=== PATIENT | male | born 1985 | race Caucasian/White ===

== ENCOUNTER 2020-08-07 16:48 | Inpatient (IN) ==
[2020-08-07] MEDS ORDERED: HYDROmorphone INJ 0.5 MG/0.5 ML SYR IV STA ×2 (17:24→21:02)
[2020-08-07] MEDS ORDERED: ONDANSETRON INJ 2 MG/ML 2 ML VIAL IV STA (17:24)
--- NOTE | 2020-08-07 17:28 | Emergency Department Note ---
History of Present Illness General Chief complaint: Abdominal Pain Stated complaint: ABD PAIN Time Seen by Provider: 08/07/20 17:13 Source: patient History of Present Illness Provider complaint: Epigastric abdominal pain Onset (ago): day(s) 2 Location: abdomen Radiation: back Severity: severe Pain Consistency: + constant Maximum Pain Intensity: 10 Quality: + sharp Exacerbated By: + eating Associated symptoms: + shortness of breath (From pain); no chest pain, no cough, no fever/chills and no nausea/vomiting This is a 35-year-old male who presents with severe abdominal pain for the past 2 days. He describes it as sharp pain in the epigastric region. It is worse when he eats. He did have biscuits and gravy at noon today which worsened his pain. He rates it a 10 out of 10 in severity. It is associated with multiple episodes of vomiting. He has not had a bowel movement for 2 days but states that he has been passing gas. He has had no urinary complaints other than dark urine. He denies any fever, cough or cold symptoms, known exposure to COVID-19, or chest pain. He does have some shortness of breath from the severe pain he is in. He denies any history of medical problems or surgery on his abdomen. Home Medications Medication Instructions Recorded Confirmed Type No Known Home Medications 08/07/20 08/07/20 History Allergies Allergy/AdvReac Type Severity Reaction Status Date / Time Opioids - Morphine Analogues AdvReac Unknown SEE COMMENT Verified 08/07/20 18:34 Past Med/Surg History Medical History No pertinent past medical history Social History Smoking Status: Current every day smoker Feels Safe at Home: Yes Review of Systems See HPI for pertinent positives & negatives. and A total of 10 systems reviewed and were otherwise negative Physical Exam Vital Signs Vital Signs - 24 hr 08/07/20 17:02 08/07/20 18:49 08/07/20 19:29 Temperature 36.3 C L Temperature Source Oral Pulse Rate 73 Pulse Rate [Finger] 80 88 Pulse Rhythm Regular Pulse Rhythm [Finger] Regular Pulse Strength Normal Pulse Strength [Finger] Normal Respiratory Rate 20 20 20 Respiratory Effort / Characteristics Non-Labored Non-Labored Spontaneous Respiratory Depth Normal Normal Respiratory Pattern Regular Blood Pressure 127/91 Blood Pressure [Right Arm] 133/85 153/79 H Blood Pressure Mean 103 Blood Pressure Mean [Right Arm] 101 103 Blood Pressure Position Sitting Blood Pressure Position [Right Arm] Pulse Oximetry 97 98 98 Oxygen Delivery Method Room Air Room Air Sepsis Recent Fever Within 48 Hours No Sepsis New/Unexplained Change in Mental Status No Sepsis Action Taken by Nursing No Action Required 08/07/20 21:19 Temperature Temperature Source Pulse Rate Pulse Rate [Finger] 55 L Pulse Rhythm Pulse Rhythm [Finger] Regular Pulse Strength Pulse Strength [Finger] Normal Respiratory Rate 20 Respiratory Effort / Characteristics Non-Labored Spontaneous Respiratory Depth Normal Respiratory Pattern Blood Pressure Blood Pressure [Right Arm] 132/74 Blood Pressure Mean Blood Pressure Mean [Right Arm] 93 Blood Pressure Position Blood Pressure Position [Right Arm] Lying Pulse Oximetry 96 Oxygen Delivery Method Room Air Sepsis Recent Fever Within 48 Hours Sepsis New/Unexplained Change in Mental Status Sepsis Action Taken by Nursing Constitutional: Vital signs reviewed. In severe pain. Eyes: Pupils are equal round reactive to light. Conjunctiva are noninjected. ENT: Pharynx is clear without erythema or exudate. Mucous membranes are moist. Neck supple without meningeal signs. Respiratory: Clear to auscultation bilaterally. Breath sounds are equal bilaterally. Cardiovascular: Regular rate and rhythm. No rubs or gallops. GI: Voluntary guarding with severe epigastric tenderness. Bowel sounds are present. Musculoskeletal: No peripheral edema. No lower extremity tenderness. Integumentary: No cyanosis. or jaundice. Neurological: The patient is awake and alert. No focal deficits. Psychiatric: Very anxious. Course Administered Medications Discontinued Medications Hydromorphone HCl (Hydromorphone Inj 0.5 Mg/0.5 Ml Syr) 0.5 mg IV NOW STA Stop: 08/07/20 17:25 Last Admin: 08/07/20 17:53 Dose: 0.5 mg Documented by: [id number] Hydromorphone HCl (Hydromorphone Inj 0.5 Mg/0.5 Ml Syr) 0.5 mg IV NOW STA Stop: 08/07/20 21:03 Last Admin: 08/07/20 21:21 Dose: 0.5 mg Documented by: [id number] Sodium Chloride (Nss 1000ml) 1,000 mls @ 999 mls/hr IV .Q1H1M JUSTYNA Stop: 08/07/20 18:30 Last Infusion: 08/07/20 18:55 Dose: 0 mls/hr Documented by: [id number] Admin: 08/07/20 17:53 Dose: 999 mls/hr Documented by: [id number] Ondansetron HCl (Ondansetron Inj 2 Mg/Ml 2 Ml Vial) 4 mg IV NOW STA Stop: 08/07/20 17:25 Last Admin: 08/07/20 17:53 Dose: 4 mg Documented by: [id number] Medical Decision Making Differential Diagnosis Peptic ulcer disease, bowel perforation, pancreatitis, cholecystitis, bowel obstruction Medical Records Attestation: I reviewed the patient's medical records. I did perform a limited focused review of portions of the patient's old chart on the electronic medical record. The patient has had no prior visits to this hospital. Home Medications Current Medication List: was personally reviewed by me Laboratory Data Attestation: I reviewed the patient's lab results. Result diagrams: 08/07/20 17:47 08/07/20 17:47 Lab Results 08/07/20 08/07/20 08/07/20 Range/Units 17:47 17:47 17:47 WBC 7.27 (4.8-10.8) K/uL RBC 4.39 L (4.7-6.1) M/uL Hgb 13.9 L (14.0-18.0) g/dL Hct 40.2 L (42-52) % MCV 91.6 (80-100) fL MCH 31.7 (25-34) pg MCHC 34.6 (32-36) g/dL RDW Std Deviation 43.0 (36.4-46.3) fL RDW Coeff of Jimmy 12.8 (11.5-14.5) % Plt Count 337 (130-400) K/uL MPV 9.7 (7.4-10.4) fL Immature Gran % (Auto) 0.1 % Neut % (Auto) 68.2 % Lymph % (Auto) 17.5 % [facility] % (Auto) 8.7 % Eos % (Auto) 5.1 % Baso % (Auto) 0.4 % Neut # (Auto) 4.96 (1.4-6.5) K/uL Lymph # (Auto) 1.27 (1.2-3.4) K/uL [facility] # (Auto) 0.63 H (0.11-0.59) K/uL Eos # (Auto) 0.37 (0-0.5) K/uL Baso # (Auto) 0.03 (0-0.2) K/uL Immature Gran # (Auto) 0.01 (0.00-0.02) K/uL Sodium 141 (136-145) mmol/L Potassium 3.5 (3.5-5.1) mmol/L Chloride 105 (98-107) mmol/L Carbon Dioxide 31 (21-32) mmol/L Anion Gap 5.0 (3-11) BUN 6 L (7-18) mg/dl Creatinine 0.94 (0.6-1.4) mg/dl Est Cr Clr Drug Dosing 145.8 ml/min Est GFR ( Amer) 123.0 Est GFR (Non-Af Amer) 106.1 BUN/Creatinine Ratio 5.9 L (10-20) Glucose 89 (70-99) mg/dl Calcium 9.3 (8.5-10.1) mg/dl Total Bilirubin 3.7 H (0.2-1) mg/dl AST 311 H (15-37) U/L ALT 780 H (12-78) U/L Alkaline Phosphatase 296 H (45-117) U/L Total Protein 7.7 (6.4-8.2) gm/dl Albumin 3.7 (3.4-5.0) gm/dl Globulin 4.0 (2.5-4.0) gm/dl Albumin/Globulin Ratio 0.9 (0.9-2) Lipase 111 (73-393) U/L Urine Color Brown Urine Appearance Clear (Clear) Urine pH (4.5-7.5) Ur Specific [place] 1.026 (1.000-1.060) Urine Protein (Negative) Urine Glucose (UA) (Negative) Urine Ketones (Negative) Urine Blood (Negative) Urine Nitrite (Negative) Urine Bilirubin (Negative) Urine Urobilinogen (Negative) Ur Leukocyte Esterase (Negative) Urine RBC 0-4 (0-4) /hpf Urine WBC 5-10 H (0-5) /hpf Ur Epithelial Cells 0-5 (0-5) /lpf Urine Bacteria Negative (Negative) Hyaline Casts 0-5 (0-5) /lpf Urine Mucus Present A (None Prsent) COVID-19 Eval Order SARS-CoV-2, RNA, NAAT (NEGATIVE) 08/07/20 08/07/20 Range/Units 21:18 21:18 WBC (4.8-10.8) K/uL RBC (4.7-6.1) M/uL Hgb (14.0-18.0) g/dL Hct (42-52) % MCV (80-100) fL MCH (25-34) pg MCHC (32-36) g/dL RDW Std Deviation (36.4-46.3) fL RDW Coeff of Jimmy (11.5-14.5) % Plt Count (130-400) K/uL MPV (7.4-10.4) fL Immature Gran % (Auto) % Neut % (Auto) % Lymph % (Auto) % [facility] % (Auto) % Eos % (Auto) % Baso % (Auto) % Neut # (Auto) (1.4-6.5) K/uL Lymph # (Auto) (1.2-3.4) K/uL [facility] # (Auto) (0.11-0.59) K/uL Eos # (Auto) (0-0.5) K/uL Baso # (Auto) (0-0.2) K/uL Immature Gran # (Auto) (0.00-0.02) K/uL Sodium (136-145) mmol/L Potassium (3.5-5.1) mmol/L Chloride (98-107) mmol/L Carbon Dioxide (21-32) mmol/L Anion Gap (3-11) BUN (7-18) mg/dl Creatinine (0.6-1.4) mg/dl Est Cr Clr Drug Dosing ml/min Est GFR ( Amer) Est GFR (Non-Af Amer) BUN/Creatinine Ratio (10-20) Glucose (70-99) mg/dl Calcium (8.5-10.1) mg/dl Total Bilirubin (0.2-1) mg/dl AST (15-37) U/L ALT (12-78) U/L Alkaline Phosphatase (45-117) U/L Total Protein (6.4-8.2) gm/dl Albumin (3.4-5.0) gm/dl Globulin (2.5-4.0) gm/dl Albumin/Globulin Ratio (0.9-2) Lipase (73-393) U/L Urine Color Urine Appearance (Clear) Urine pH (4.5-7.5) Ur Specific [place] (1.000-1.060) Urine Protein (Negative) Urine Glucose (UA) (Negative) Urine Ketones (Negative) Urine Blood (Negative) Urine Nitrite (Negative) Urine Bilirubin (Negative) Urine Urobilinogen (Negative) Ur Leukocyte Esterase (Negative) Urine RBC (0-4) /hpf Urine WBC (0-5) /hpf Ur Epithelial Cells (0-5) /lpf Urine Bacteria (Negative) Hyaline Casts (0-5) /lpf Urine Mucus (None Prsent) COVID-19 Eval Order Covid19 [facility]Now [facility] SARS-CoV-2, RNA, NAAT NEGATIVE (NEGATIVE) Imaging Data Radiologist's Impression: CT SCAN OF THE ABDOMEN AND PELVIS WITHOUT CONTRAST CLINICAL HISTORY: Severe epigastric abdominal pain COMPARISON STUDY: No previous studies for comparison. TECHNIQUE: CT scan of the abdomen and pelvis was performed from the lung bases to the proximal femurs. Images are reviewed in the axial, sagittal, and coronal planes. IV contrast was not administered for this examination. A dose lowering technique was utilized adhering to the principles of ALARA. CT DOSE: 1160.57 mGycm FINDINGS: Lower chest: Very subtle groundglass attenuation within the lower lobes is likely atelectatic Liver: The unenhanced liver is normal in size, contour, and attenuation. There is no intrahepatic biliary ductal dilatation. Gallbladder: Cholelithiasis. Spleen: Normal in size and attenuation. Pancreas: Unremarkable. Adrenal glands: Unremarkable. Kidneys: There is a 24 mm hypodense right renal lesion. This slightly exceeds water attenuation but a statistical basis nevertheless represents a cyst, given the patient's age. Bowel: There are no transition zones to indicate bowel obstruction. There is no evidence of acute diverticulitis. There is no evidence of acute appendicitis. Peritoneum: There is no intraperitoneal free air or abdominal ascites. Vasculature: The abdominal aorta is normal in course and caliber. Adenopathy: There are mildly prominent ileocolic lymph nodes likely reactive Pelvic viscera: The bladder, and pelvic viscera are unremarkable. Skeletal structures: No destructive osseous lesions are seen. IMPRESSION: 1. No evidence of bowel obstruction. No evidence of free air 2. Normal appendix. No evidence of acute diverticulitis 3. Cholelithiasis. Mildly distended gallbladder 4. Minimally prominent right ileocolic lymph nodes likely reactive 5. 24 mm right renal lesion likely representing a cyst although it slightly exceeds water attenuation. Ultrasound confirmation could be obtained as deemed clinically appropriate. ACT 112: Negative or not required by law. Electronically signed by: Michael Lopez M.D. 08/07/2020 6:29 PM Dictated: 08/07/201823 Transcribed: 08/07/201823 BILIARY ULTRASOUND CLINICAL HISTORY: Epigastric pain. Possible acute cholecystitis COMPARISON STUDY: Chest CT performed the same day FINDINGS: The pancreas appeared normal as visualized. Multiple gallstones were visualized. The gallbladder wall measures 3 mm. The technologist reports a negative sonographic Joel sign. There is mild dilatation the common bile duct which measures 7 mm in maximal norbert meter. There is no right-sided hydronephrosis. There is a 27 mm right renal cyst. IMPRESSION: 1. Cholelithiasis. The gallbladder wall is at the upper limits of normal in thickness measuring 3 mm. 2. The technologist reports a negative sonographic Joel sign 2. Mild dilatation of the common bile duct which measures 7 mm 4. 27 mm right renal cyst ACT 112: Negative or not required by law. Electronically signed by: Michael Lopez M.D. 08/07/2020 7:52 PM Dictated: 08/07/201948 Transcribed: 08/07/201948 MDM Narrative I did evaluate the patient as noted above. The patient is presenting with upper abdominal pain for about 2 days. Is worse after eating. He had biscuits and gravy today which made it significantly worse. He is tender in the epigastric region with diffuse voluntary guarding. IV access was established. I did place an order for continuous cardiac monitoring. The monitor showed normal sinus rhythm at a rate of 60 bpm. I did treat him with IV Dilaudid and Zofran. He was made n.p.o. and given normal saline IV. I did order a urine analysis. Interpretation is limited due to the dark color. I did order and review the patient's blood work as noted in the electronic medical record. Hemoglobin is 13.9. His white blood cell count is not elevated. Electrolytes are unremarkable. Total bilirubin is 3.7. AST is 311 and ALT is 780. Alk phos is 296. Lipase is within normal limits. I did order a CT of the abdomen and pelvis. I did review the images myself as well as the radiology report as described above. The patient has cholelithiasis with a mildly distended gallbladder. He has some mildly reactive lymph nodes. No acute process was otherwise noted. I did reexamine the patient. He is feeling much better. His abdomen is soft. He has tenderness in the epigastric and right upper quadrant without Joel sign. I did recommend ultrasound of the gallbladder which she was agreeable with. I did order an ultrasound which showed cholelithiasis with dilation of the common bile duct. The gallbladder wall was measured at the upper limit of normal at 3 mm. Negative sonographic Joel sign. I did reassess the patient again. I did discuss the test results with him. He states his pain is now coming back. He was given additional Dilaudid 0.5 mg IV. I did recommend hospitalization for further care and evaluation and GI consultation. He was agreeable with this plan. A rapid Covid test was obtained and negative. I did discuss the case with the hospitalist and case management rn. Impression & Plan Biliary obstruction, Cholelithiasis, Abnormal LFTs Discharge Plan Visit Data Chief Complaint: Abdominal Pain Stated Complaint: ABD PAIN ED Provider: Arvin Oquendo Discharge Problem: Biliary obstruction, Cholelithiasis, Abnormal LFTs Patient Disposition: Being Evaluated by Hospitalist Forms Stand Alone Forms: My [employer] Prescriptions Prescriptions: No Action No Known Home Medications RF: 0 Referrals Referrals: PCP,NO [Primary Care Provider] -
[2020-08-07] MEDS ORDERED: SODIUM CHLORIDE 0.9% 1000ML 1,000 ML IV SCH (17:30)
[2020-08-07 17:57] LABS: Basophils # (auto) 0.03 K/uL (0-0.2); Basophils % (auto) 0.4 %; Eosinophils # (auto) 0.37 K/uL (0-0.5); Eosinophils % (auto) 5.1 %; Hematocrit (blood only) 40.2 % (42-52); Hemoglobin 13.9 g/dL (14.0-18.0); Immature Granulocytes # (auto) 0.01 K/uL (0.00-0.02); Immature Granulocytes % (auto) 0.1 %; Lymphocytes # (auto) 1.27 K/uL (1.2-3.4); Lymphocytes % (auto) 17.5 %; Mean Corpuscular Hemoglobin 31.7 pg (25-34); Mean Corpuscular Hgb Conc 34.6 g/dL (32-36); Mean Corpuscular Volume 91.6 fL (80-100); Mean Platelet Volume 9.7 fL (7.4-10.4); Monocytes # (auto) 0.63 K/uL (0.11-0.59); Monocytes % (auto) 8.7 %; Neutrophils # (auto) 4.96 K/uL (1.4-6.5); Neutrophils % (auto) 68.2 %; Platelet Count 337 K/uL (130-400); RDW Coefficient of Variation 12.8 % (11.5-14.5); Red Blood Count 4.39 M/uL (4.7-6.1); White Blood Count 7.27 K/uL (4.8-10.8)
[2020-08-07 18:14] LABS: Albumin Level 3.7 gm/dl (3.4-5.0); BUN Creatinine Ratio 5.9 (10-20); Calcium 9.3 mg/dl (8.5-10.1); Creatinine Clr Calc Pharmacy 145.8 ml/min; Est GFR (Non-African American) 106.1; Potassium 3.5 mmol/L (3.5-5.1)
[2020-08-07 18:16] LABS: Appearance Urine Clear (Clear); Color Urine Brown
[2020-08-07 18:17] LABS: Albumin Globulin Ratio 0.9 (0.9-2); Bilirubin,Total 3.7 mg/dl (0.2-1); Total Protein 7.7 gm/dl (6.4-8.2)
[2020-08-07 18:18] LABS: Specific Gravity Urine 1.026 (1.000-1.060)
[2020-08-07 18:20] LABS: Epithelial Cell Urine 0-5 /lpf (0-5)
[2020-08-07 18:21] LABS: Bacteria Urine Negative (Negative); Hyaline Casts Urine 0-5 /lpf (0-5); RBC Urine 0-4 /hpf (0-4)
[2020-08-07 18:24] LABS: Mucus Urine Present (None Prsent)
--- NOTE | 2020-08-07 18:30 | CT Scan Report ---
CT SCAN OF THE ABDOMEN AND PELVIS WITHOUT CONTRAST CLINICAL HISTORY: Severe epigastric abdominal pain COMPARISON STUDY: No previous studies for comparison. TECHNIQUE: CT scan of the abdomen and pelvis was performed from the lung bases to the proximal femurs . Images are reviewed in the axial, sagittal, and coronal planes. IV contrast was not administered fo r this examination. A dose lowering technique was utilized adhering to the principles of ALARA. CT DOSE: 1160.57 mGycm FINDINGS: Lower chest: Very subtle groundglass attenuation within the lower lobes is likely atelectatic Liver: The unenhanced liver is normal in size, contour, and attenuation. There is no intrahepatic camille iary ductal dilatation. Gallbladder: Cholelithiasis. Spleen: Normal in size and attenuation. Pancreas: Unremarkable. Adrenal glands: Unremarkable. Kidneys: There is a 24 mm hypodense right renal lesion. This slightly exceeds water attenuation but a statistical basis nevertheless represents a cyst, given the patient's age. Bowel: There are no transition zones to indicate bowel obstruction. There is no evidence of acute div erticulitis. There is no evidence of acute appendicitis. Peritoneum: There is no intraperitoneal free air or abdominal ascites. Vasculature: The abdominal aorta is normal in course and caliber. Adenopathy: There are mildly prominent ileocolic lymph nodes likely reactive Pelvic viscera: The bladder, and pelvic viscera are unremarkable. Skeletal structures: No destructive osseous lesions are seen. IMPRESSION: 1. No evidence of bowel obstruction. No evidence of free air 2. Normal appendix. No evidence of acute diverticulitis 3. Cholelithiasis. Mildly distended gallbladder 4. Minimally prominent right ileocolic lymph nodes likely reactive 5. 24 mm right renal lesion likely representing a cyst although it slightly exceeds water attenuation . Ultrasound confirmation could be obtained as deemed clinically appropriate. ACT 112: Negative or not required by law. Electronically signed by: Michael Lopez M.D. 08/07/2020 6:29 PM
--- NOTE | 2020-08-07 19:54 | Ultrasound Report ---
BILIARY ULTRASOUND CLINICAL HISTORY: Epigastric pain. Possible acute cholecystitis COMPARISON STUDY: Chest CT performed the same day FINDINGS: The pancreas appeared normal as visualized. Multiple gallstones were visualized. The gallbladder wall measures 3 mm. The technologist reports a n egative sonographic Joel sign. There is mild dilatation the common bile duct which measures 7 mm in maximal diameter. There is no right-sided hydronephrosis. There is a 27 mm right renal cyst. IMPRESSION: 1. Cholelithiasis. The gallbladder wall is at the upper limits of normal in thickness measuring 3 mm. 2. The technologist reports a negative sonographic Joel sign 2. Mild dilatation of the common bile duct which measures 7 mm 4. 27 mm right renal cyst ACT 112: Negative or not required by law. Electronically signed by: Michael Lopez M.D. 08/07/2020 7:52 PM
--- NOTE | 2020-08-07 23:12 | History & Physical Report ---
Date of Service August 07, 2020 Assessment & Plan (1) Cholelithiasis: Cholelithiasis with mildly distended gallbladder/abnormal LFTs mild CBD dilatation- NPO Zosyn 4.5 g IV every 8 hours Famotidine 20 mg IV every 12 hours Zofran 4 mg IV every 6 hours as needed Dilaudid 0.2 mg IV every 3 hours as needed severe pain NSS + KCl 20 mEq at 100 mils per hour Order MRCP Repeat laboratories in a.m. Pending results we will consult gastroenterology/general surgery Present on Admission?: Yes (2) Abnormal LFTs: See above Present on Admission?: Yes (3) Gallbladder anomaly: See above Present on Admission?: Yes (4) Common bile duct dilatation: See above Present on Admission?: Yes (5) Renal cyst, right: Right renal cyst 27 mm in size confirmed on CT and ultrasound. Will need to be followed Present on Admission?: Yes History of Present Illness Chief Complaint: The patient presented to the emergency department with complaint of epigastric and right upper quadrant abdominal discomfort over the past 2 days, which worsened today after eating biscuits and gravy. Primary Care Provider: NO PCP The patient is a 35-year-old male with no significant PMH who presents with symptoms as noted above. Abnormal laboratories in the emergency department tonight: Hemoglobin 13.9, total bilirubin 3.7, AST 311, ALT 780, alkaline phosphatase 296. Biliary ultrasound showed cholelithiasis with gallbladder wall at the upper limits of normal thickness. There was a negative sonographic Joel sign. Mild dilatation of the common bile duct which measures 7 mm. [address] renal cyst CT of abdomen and pelvis showed no evidence of bowel obstruction and no evidence of free air. There is normal appendix and no evidence of acute diverticulitis. Cholelithiasis with mildly distended gallbladder. Minimally prominent right ileocolic lymph nodes likely reactive. 24 mm right renal lesion likely representing a cyst although a slightly exceeds water attenuation Allergies Allergy/AdvReac Type Severity Reaction Status Date / Time Opioids - Morphine Analogues AdvReac Unknown SEE COMMENT Verified 08/07/20 18:34 Home Medications Medication Instructions Recorded Confirmed Type No Known Home Medications 08/07/20 08/07/20 History Past Med/Surg History Medical History No pertinent past medical history Social History Smoking Status: Current every day smoker Cigarettes Per Day: 10; Hx Alcohol Use: Yes Preferred Language: Wolof Communication Ability: Effective Computer Security Specialist Required: No Beliefs That Will Affect Care: None Current Living Situation: Alone Feels Safe at Home: Yes Assistive Devices: None Review of Systems Review of Systems: The patient denies chest pain, palpitations, shortness of breath, dyspnea on exertion, cough, lower extremity swelling, sore throat, fevers, chills, sweats, vomiting, diarrhea , constipation, blood in urine or stool, dysuria, urinary frequency or urgency, lightheadedness, dizziness, headache, rash, abnormal bruising or bleeding, imbalance, focal or generalized weakness, numbness or tingling in arms or legs, generalized arthralgias or myalgias, back or neck pain, or night sweats. The review of systems is otherwise negative other than for that already noted above, and at least 10 systems have been reviewed. Physical Exam Physical Exam: The patient is awake, alert and oriented 3, well developed and well nourished, normocephalic and atraumatic, lying in bed and in no acute distress. HEENT--PERRL, EOMI, mucous membranes and oropharynx dry. Neck--supple. No JVD. No bruits. Thyroid normal, trachea midline, no adenopathy. Heart--normal S1 and S2. No murmurs, rubs or gallops. Lungs--clear bilaterally, no respiratory distress, no accessory muscle use. Abdomen--normal bowel sounds and soft. Mild epigastric tenderness. Nondistended, no hernias or masses, no organomegaly. Extremities--no cyanosis or clubbing. No edema. Dermatologic--normal skin turgor, normal color, no abnormal lymph nodes, no rash. Neurologic--cranial nerves II through XII grossly intact. Rheumatologic--normal range of motion. Psychiatric--normal affect. Results & Data Results & Data ([facility]) Vital Signs (Past 12 Hours) Vital Signs Temp Pulse Pulse Resp BP BP Pulse Ox 08/07/20 21:19 55 L 20 132/74 96 08/07/20 19:29 88 20 153/79 H 98 08/07/20 18:49 80 20 133/85 98 08/07/20 17:02 97.3 F L 73 20 127/91 97 Diagnostic Findings [facility], [id number] Ultrasound Report Patient: ALCIRA NEGRETE Date: 08/07/20MR#: [id number]: [address] ID:[id number]: Date: 1985[facility] Zip: [place], [place] [address]Age: 35Location: EDSex: MRoom/Bed:Att Phy:Diagnosis: ABD PAINPri Phy: PCP,NOService Date: 08/07/20Fam Phy:Interpreting Phy: Michael Lopez [facility] Phy: Ordering Phy: Arvin Oquendo MD cc: ~ BILIARY ULTRASOUND CLINICAL HISTORY: Epigastric pain. Possible acute cholecystitis COMPARISON STUDY: Chest CT performed the same day FINDINGS: The pancreas appeared normal as visualized. Multiple gallstones were visualized. The gallbladder wall measures 3 mm. The technologist reports a negative sonographic Joel sign. There is mild dilatation the common bile duct which measures 7 mm in maximal diameter. There is no right-sided hydronephrosis. There is a 27 mm right renal cyst. IMPRESSION: 1. Cholelithiasis. The gallbladder wall is at the upper limits of normal in thickness measuring 3 mm. 2. The technologist reports a negative sonographic Joel sign 2. Mild dilatation of the common bile duct which measures 7 mm 4. 27 mm right renal cyst ACT 112: Negative or not required by law. Electronically signed by: Michael Lopez M.D. 08/07/2020 7:52 PM Dictated: 08/07/201948Transcribed: 08/07/201948 [facility], [phone] CT Scan Report Patient: ALCIRA NEGRETE Date: 08/07/20MR#: [id number]: [address] ID:[id number]: Date: 1985[facility] Zip: [place], [place] [address]Age: 35Location: EDSex: MRoom/Bed:Att Phy:Diagnosis: ABD PAINPri Phy: PCP,NOService Date: 08/07/20Fam Phy:Interpreting Phy: Michael Lopez MDAdmit Phy: Ordering Phy: Arvin Oquendo MD cc: ~ CT SCAN OF THE ABDOMEN AND PELVIS WITHOUT CONTRAST CLINICAL HISTORY: Severe epigastric abdominal pain COMPARISON STUDY: No previous studies for comparison. TECHNIQUE: CT scan of the abdomen and pelvis was performed from the lung bases to the proximal femurs. Images are reviewed in the axial, sagittal, and coronal planes. IV contrast was not administered for this examination. A dose lowering technique was utilized adhering to the principles of ALARA. CT DOSE: 1160.57 mGycm FINDINGS: Lower chest: Very subtle groundglass attenuation within the lower lobes is likely atelectatic Liver: The unenhanced liver is normal in size, contour, and attenuation. There is no intrahepatic biliary ductal dilatation. Gallbladder: Cholelithiasis. Spleen: Normal in size and attenuation. Pancreas: Unremarkable. Adrenal glands: Unremarkable. Kidneys: There is a 24 mm hypodense right renal lesion. This slightly exceeds w ater attenuation but a statistical basis nevertheless represents a cyst, given the patient's age. Bowel: There are no transition zones to indicate bowel obstruction. There is no evidence of acute diverticulitis. There is no evidence of acute appendicitis. Peritoneum: There is no intraperitoneal free air or abdominal ascites. Vasculature: The abdominal aorta is normal in course and caliber. Adenopathy: There are mildly prominent ileocolic lymph nodes likely reactive Pelvic viscera: The bladder, and pelvic viscera are unremarkable. Skeletal structures: No destructive osseous lesions are seen. IMPRESSION: 1. No evidence of bowel obstruction. No evidence of free air 2. Normal appendix. No evidence of acute diverticulitis 3. Cholelithiasis. Mildly distended gallbladder 4. Minimally prominent right ileocolic lymph nodes likely reactive 5. 24 mm right renal lesion likely representing a cyst although it slightly exceeds water attenuation. Ultrasound confirmation could be obtained as deemed clinically appropriate. ACT 112: Negative or not required by law. Electronically signed by: Michael Lopez M.D. 08/07/2020 6:29 PM Dictated: 08/07/201823Transcribed: 08/07/201823 Code Status & VTE Plan Code Status Full code VTE Prophylaxis Plan VTE Prophylaxis will be ordered: Yes PG Care Time/CCT Total # of Minutes Spent Total Time Spent with Patient: Total time spent is greater than 50% in coordination of care (as documented) at patient's floor/unit and/or counseling patient: Coding Level of Care Code 63877 Initial Inpt Care Lvl 2 Diagnoses Cholelithiasis K80.71 Biliary obstruction: with biliary obstruction Cholecystitis presence: without cholecystitis Cholelithiasis location: gallbladder and bile duct Abnormal LFTs R94.5 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
[2020-08-07] MEDS ORDERED: PIPERACILL/TAZOBAC CONSULT ACTIVE PRN (23:13)
[2020-08-07] MEDS ORDERED: INFLUENZA VIRUS QUAD VACCINE 0.5 ML SYR IM ONE (23:54)
[2020-08-07] MEDS ORDERED: INFLUENZA ADMINISTRATION CHARGE ONE (23:54)
[2020-08-08] MEDS ORDERED: PIPERACILLIN/TAZOBACTAM 4.5 GM in DEXTROSE 5% 100 ML IV ONE
[2020-08-08] MEDS ORDERED: HYDROmorphone INJ 0.5 MG/0.5 ML SYR ONE (00:31)
[2020-08-08] MEDS: HYDROmorphone INJ 0.5 MG/0.5 ML SYR IV PRN ×6 (00:35→21:09)
[2020-08-08] MEDS: NSS + 20MEQ KCL 20 MEQ/1,000 ML BAG IV SCH ×3 (00:48→20:35)
[2020-08-08] MEDS: PIPERACILLIN/TAZOBACTAM 3.375 GM in DEXTROSE 5% 100 ML IV SCH ×3 (05:37→20:33)
[2020-08-08 06:37] LABS: Basophils # (auto) 0.04 K/uL (0-0.2); Basophils % (auto) 0.7 %; Eosinophils # (auto) 0.38 K/uL (0-0.5); Eosinophils % (auto) 6.6 %; Hematocrit (blood only) 37.1 % (42-52); Hemoglobin 12.3 g/dL (14.0-18.0); Immature Granulocytes # (auto) 0.01 K/uL (0.00-0.02); Immature Granulocytes % (auto) 0.2 %; Lymphocytes # (auto) 1.84 K/uL (1.2-3.4); Lymphocytes % (auto) 31.9 %; Mean Corpuscular Hgb Conc 33.2 g/dL (32-36); Mean Corpuscular Volume 93.5 fL (80-100); Mean Platelet Volume 9.9 fL (7.4-10.4); Monocytes # (auto) 0.66 K/uL (0.11-0.59); Monocytes % (auto) 11.4 %; Neutrophils # (auto) 2.84 K/uL (1.4-6.5); Neutrophils % (auto) 49.2 %; Platelet Count 299 K/uL (130-400); RDW Coefficient of Variation 13.1 % (11.5-14.5); RDW Standard Deviation 44.6 fL (36.4-46.3); Red Blood Count 3.97 M/uL (4.7-6.1); White Blood Count 5.77 K/uL (4.8-10.8)
[2020-08-08 07:02] LABS: Albumin Level 3.1 gm/dl (3.4-5.0); BUN Creatinine Ratio 5.9 (10-20); Calcium 8.7 mg/dl (8.5-10.1); Creatinine Clr Calc Pharmacy 162.5 ml/min; Est GFR (African American) 132.7; Est GFR (Non-African American) 114.5; Potassium 3.4 mmol/L (3.5-5.1)
[2020-08-08 07:10] LABS: Albumin Globulin Ratio 0.8 (0.9-2); Bilirubin,Total 1.3 mg/dl (0.2-1); Globulin 3.7 gm/dl (2.5-4.0); Total Protein 6.8 gm/dl (6.4-8.2)
--- NOTE | 2020-08-08 07:14 | XRay Report ---
BONY ORBITS 3 VIEWS CLINICAL HISTORY: MRI clearance. FINDINGS: 3 views of the bony orbits are obtained. No prior studies are available for comparison at t he time of dictation. There is no radiodense/metallic foreign body seen in the region of the bony orb its. The bony orbits are intact as imaged. The visualized paranasal sinuses and the mastoid air cells appear clear. The imaged calvarium appears intact. IMPRESSION: There is no radiodense/metallic foreign body seen in the region of the bony orbits. ACT 112: Negative or not required by law. Electronically signed by: Jerzy Toussaint M.D. 08/08/2020 7:13 AM
--- NOTE | 2020-08-08 08:24 | Magnetic Resonance Report ---
MR MRCP CLINICAL HISTORY: abnormal liver function tests, mild dilated CBD COMPARISON STUDY: Biliary ultrasound dated 07/30/2020, CT scan the abdomen and pelvis dated 07/30/2020 FINDINGS: A breath-hold MRCP was performed. MIP images were acquired. There are multiple gallstones. There is no gallbladder wall thickening and no pericholecystic fluid. There is mild dilatation of the common bile duct which measures 7 mm. There is no pancreatic ductal dilatation. There is a 2.5 cm T2 bright right renal lesion consistent with a cyst. There is a nonspecific T2 hypointense 12 mm splenic lesion. There is 16mm T2 bright lesion within the left hepatic lobe. There is mild narrowing of the distalmost common bile duct. No definite calculi are visualized. IMPRESSION: 1. Cholelithiasis 2. 7 mm common bile duct 3. Mild nonspecific narrowing of the distalmost common bile duct. No definite common bile duct calcul i identified 4. No evidence of pancreatic ductal dilatation 5. 16mm T2 bright hepatic lesion, and 12 mm T2 hypointense splenic lesion which cannot be further meagan racterized on this MRCP. ACT 112: Negative or not required by law. Electronically signed by: Michael Lopez M.D. 08/08/2020 8:23 AM
[2020-08-08] MEDS ORDERED: cefTRIAXone SODIUM 2,000 MG in DEXTROSE 5% 50 ML IV SCH (09:00)
--- NOTE | 2020-08-08 09:09 | Gastrointestinal Consultation ---
Date of Consultation August 08, 2020 Assessment & Plan (1) Cholelithiasis: (2) Abnormal LFTs: The patient presented to the emergency department last night due to 3-day history of right upper quadrant abdominal pain that worsened after eating and with movement. The patient reports that he has had nausea and associated vomiting. He does have cholelithiasis noted on imaging. No true bile duct obstruction was identified and on MRCP. Liver function testing has been elevated. He has had improvement in LFTs since admission. Total bilirubin this morning 1.3, AST 164, ALT 620, alk phos 253. Will obtain biliary scan to determine if acute cholecystitis is present. Continue n.p.o. Continue IV fluids and antibiotics. Please refer to supervising physician addendum for further recommendations. History of Present Illness Attending Physician: Rei Diaz, History of Present Illness The patient is a 35-year-old male with no pertinent past medical history who presented to the emergency department for evaluation 08/07/2020 due to severe right upper quadrant abdominal pain, nausea, vomiting. He was subsequently admitted due to elevated LFTs and cholelithiasis. GI was consulted due to elevated LFTs and to evaluate need for ERCP. On exam/interview today, the patient reports that his abdominal pain began approximately 3 days ago. He reports abdominal pain would worsen after eating and with any movement. Pain is right upper quadrant. He states he also had associated nausea and vomiting. He reports daily regular bowel movement which are soft formed and easy to pass. Denies any melena or hematochezia. He denies previous gallbladder issues. He does report that his father had his gallbladder removed at the same age. He has had no previous abdominal surgeries. He reports pain 8 out of 10 with palpation. The patient is a current smoker. He is 0.5 packs of cigarettes per day. He has been doing this for last 10 years. He reports he drinks alcohol approximately 1 time per month. Denies any drug use including marijuana. He works at a [employer] stop pumping [employer]. He is unmarried and has no children. Allergies Allergy/AdvReac Type Severity Reaction Status Date / Time Opioids - Morphine Analogues AdvReac Unknown SEE COMMENT Verified 08/07/20 18:34 Home Medications Medication Instructions Recorded Confirmed Type No Known Home Medications 08/07/20 08/07/20 History Patient History Medical History No pertinent past medical history Social History Smoking Status: Current every day smoker Cigarettes Per Day: 10; Hx Alcohol Use: Yes Preferred Language: Ug[place]an Communication Ability: Effective [employer] Required: No Beliefs That Will Affect Care: None Current Living Situation: Alone Feels Safe at Home: Yes Assistive Devices: None Review of Systems Review of Systems: All systems reviewed & are unremarkable except as noted in HPI & below Physical Exam Constitutional: WD/WN, vitals as above Eyes: + scleral abnormality (yellow) ENMT: external ear and nose normal, oropharynx normal Neck: normal visual inspection Respiratory: normal respiratory effort, lungs clear to auscultation Cardiovascular: RRR, no murmur, no edema Gastrointestinal (Abdomen): Inspection/Auscultation: abdomen normal to inspection and normal bowel sounds; abdomen not distended Percussion/Palpation: + abdomen tender (RUQ) and abdomen soft; no guarding and abdomen not rigid Musculoskeletal: no cyanosis or clubbing, extremities motor strength 5/5 Skin: no rashes, warm and dry Neurologic: PERRL, EOMI, accommodation nl, no face palsy, no dysarthria Psychiatric: A+Ox3, euthymic affect Results & Data ([facility]) Vital Signs (Past 12 Hours) Vital Signs Temp Pulse Pulse Resp BP BP Pulse Ox 08/08/20 07:13 36.6 C 52 L 18 108/62 93 08/07/20 23:45 36.6 C 65 16 113/72 97 08/07/20 23:32 68 16 138/73 97 08/07/20 21:19 55 L 20 132/74 96 Laboratory Results - last 24 hr 08/07/20 08/07/20 08/07/20 17:47 17:47 17:47 WBC 7.27 RBC 4.39 L Hgb 13.9 L Hct 40.2 L MCV 91.6 MCH 31.7 MCHC 34.6 RDW Std Deviation 43.0 RDW Coeff of Jimmy 12.8 Plt Count 337 MPV 9.7 Immature Gran % (Auto) 0.1 Neut % (Auto) 68.2 Lymph % (Auto) 17.5 [place] % (Auto) 8.7 Eos % (Auto) 5.1 Baso % (Auto) 0.4 Neut # (Auto) 4.96 Lymph # (Auto) 1.27 [place] # (Auto) 0.63 H Eos # (Auto) 0.37 Baso # (Auto) 0.03 Immature Gran # (Auto) 0.01 Sodium 141 Potassium 3.5 Chloride 105 Carbon Dioxide 31 Anion Gap 5.0 BUN 6 L Creatinine 0.94 Est Cr Clr Drug Dosing 145.8 Est GFR ( Amer) 123.0 Est GFR (Non-Af Amer) 106.1 BUN/Creatinine Ratio 5.9 L Glucose 89 Calcium 9.3 Magnesium Total Bilirubin 3.7 H AST 311 H ALT 780 H Alkaline Phosphatase 296 H Total Protein 7.7 Albumin 3.7 Globulin 4.0 Albumin/Globulin Ratio 0.9 Lipase 111 Urine Color Brown Urine Appearance Clear Urine pH Ur Specific [place] 1.026 Urine Protein Urine Glucose (UA) Urine Ketones Urine Blood Urine Nitrite Urine Bilirubin Urine Urobilinogen Ur Leukocyte Esterase Urine RBC 0-4 Urine WBC 5-10 H Ur Epithelial Cells 0-5 Urine Bacteria Negative Hyaline Casts 0-5 Urine Mucus Present A COVID-19 Eval Order SARS-CoV-2, RNA, NAAT 08/07/20 08/07/20 08/08/20 21:18 21:18 05:46 WBC 5.77 RBC 3.97 L Hgb 12.3 L Hct 37.1 L MCV 93.5 MCH 31.0 MCHC 33.2 RDW Std Deviation 44.6 RDW Coeff of Jimmy 13.1 Plt Count 299 MPV 9.9 Immature Gran % (Auto) 0.2 Neut % (Auto) 49.2 Lymph % (Auto) 31.9 [place] % (Auto) 11.4 Eos % (Auto) 6.6 Baso % (Auto) 0.7 Neut # (Auto) 2.84 Lymph # (Auto) 1.84 [place] # (Auto) 0.66 H Eos # (Auto) 0.38 Baso # (Auto) 0.04 Immature Gran # (Auto) 0.01 Sodium Potassium Chloride Carbon Dioxide Anion Gap BUN Creatinine Est Cr Clr Drug Dosing Est GFR ( Amer) Est GFR (Non-Af Amer) BUN/Creatinine Ratio Glucose Calcium Magnesium Total Bilirubin AST ALT Alkaline Phosphatase Total Protein Albumin Globulin Albumin/Globulin Ratio Lipase Urine Color Urine Appearance Urine pH Ur Specific [place] Urine Protein Urine Glucose (UA) Urine Ketones Urine Blood Urine Nitrite Urine Bilirubin Urine Urobilinogen Ur Leukocyte Esterase Urine RBC Urine WBC Ur Epithelial Cells Urine Bacteria Hyaline Casts Urine Mucus COVID-19 Eval Order Cov[facility]19 [facility] [place] [facility] [place] SARS-CoV-2, RNA, NAAT NEGATIVE 08/08/20 05:46 WBC RBC Hgb Hct MCV MCH MCHC RDW Std Deviation RDW Coeff of Jimmy Plt Count MPV Immature Gran % (Auto) Neut % (Auto) Lymph % (Auto) [place] % (Auto) Eos % (Auto) Baso % (Auto) Neut # (Auto) Lymph # (Auto) [place] # (Auto) Eos # (Auto) Baso # (Auto) Immature Gran # (Auto) Sodium 142 Potassium 3.4 L Chloride 109 H Carbon Dioxide 28 Anion Gap 5.0 BUN 5 L Creatinine 0.85 Est Cr Clr Drug Dosing 162.5 Est GFR ( Amer) 132.7 Est GFR (Non-Af Amer) 114.5 BUN/Creatinine Ratio 5.9 L Glucose 78 Calcium 8.7 Magnesium 2.0 Total Bilirubin 1.3 H D AST 164 H ALT 620 H Alkaline Phosphatase 253 H Total Protein 6.8 Albumin 3.1 L Globulin 3.7 Albumin/Globulin Ratio 0.8 L Lipase 76 Urine Color Urine Appearance Urine pH Ur Specific [place] Urine Protein Urine Glucose (UA) Urine Ketones Urine Blood Urine Nitrite Urine Bilirubin Urine Urobilinogen Ur Leukocyte Esterase Urine RBC Urine WBC Ur Epithelial Cells Urine Bacteria Hyaline Casts Urine Mucus COVID-19 Eval Order SARS-CoV-2, RNA, NAAT 08/07/2020: CT of the abdomen pelvis with contrast demonstrated IMPRESSION: 1. No evidence of bowel obstruction. No evidence of free air 2. Normal appendix. No evidence of acute diverticulitis 3. Cholelithiasis. Mildly distended gallbladder 4. Minimally prominent right ileocolic lymph nodes likely reactive 5. 24 mm right renal lesion likely representing a cyst although it slightly exc eeds water attenuation. Ultrasound confirmation could be obtained as deemed clinically appropriate. 08/07/2020: Biliary ultrasound demonstrated IMPRESSION: 1. Cholelithiasis. The gallbladder wall is at the upper limits of normal in thickness measuring 3 mm. 2. The technologist reports a negative sonographic Joel sign 2. Mild dilatation of the common bile duct which measures 7 mm 4. 27 mm right renal cyst 08/08/2020: MRCP demonstrated IMPRESSION: 1. Cholelithiasis 2. 7 mm common bile duct 3. Mild nonspecific narrowing of the distalmost common bile duct. No definite common bile duct calculi identified 4. No evidence of pancreatic ductal dilatation 5. 16mm T2 bright hepatic lesion, and 12 mm T2 hypointense splenic lesion which cannot be further characterized on this MRCP. (1) Cholelithiasis Biliary obstruction: with biliary obstruction Cholecystitis presence: without cholecystitis Cholelithiasis location: gallbladder and bile duct Qualified Code(s): K80.71 - Calculus of gallbladder and bile duct without cholecystitis with obstruction
--- NOTE | 2020-08-08 13:43 | Hospitalist Progress Note ---
Date of Service August 08, 2020 Assessment & Plan (1) Renal cyst, right: Mr. Zurita is a 35-year-old male with no significant PMH who presented on 08/07 for a 2-3 day h/o epigastric and right upper quadrant pain who was admitted for elevated transaminases and imaging consistent with cholelithiasis. Epigastric/RUQ pain Cholelithiasis - Gallbladder u/s showed cholelithiasis, gallbladder wall thickening, mild dilatation of the CBD, and renal cyst - Abdominal/Pelvis CT consistent with above, as well as mildly distended gallbladder, and small right ileocolic lymph node likely reactive - MRCP consistent with above, as well as slightly dilated CBD with small narro wing of distal bile duct - GI consulted, ordered HIDA which was negative - lipase normal, LFT's elevated at AST 164 ALT 620 - General surgery consulted, plan for cholecystectomy tomorrow morning - clear liquids for dinner and then NPO at midnight Continue Zosyn for cholecystitis though imaging and labwork not convincing for acute cholecystitis - Dilaudid 0.2 mg IV q3H PRN for pain - Zofran 4 mg IV q6H PRN for nausea Elevated transaminases - 08/07-08/08 total bilirubin 3.7->1.3, AST 311->164, ALT 780->620, alkaline phosphatase 296->253 - As there is no evidence of current obstruction, could very well be secondary to passing a stone prior to our investigations given drop in cholestatic elevations and mild dilation of CBD Renal cyst - Per CT: likely representing a cyst although slightly exceeds water attenuation - U/S confirming right renal cyst 27 mm normal kidney function FEN/GI: clear liquid diet and NPO at midnight Dispo: Plan for cholecystectomy tomorrow morning DVT PPx: Ambulation Full Code (2) Common bile duct dilatation: (3) Gallbladder anomaly: (4) Biliary obstruction: (5) Cholelithiasis: (6) Abnormal LFTs: Admission and Anticipated Discharge Date Admission Date: August 07, 2020 Supervising Physician Co-Signing Physician Notes I saw the patient along with the resident physician and confirmed wiggins portions of the history and physical examination. I agree with the impression and plan as noted. Upon exam mid-to-late afternoon, the patient pain was improved although he had been recently medicated. He is hungry but does note that he has had pretty intense pain historically with any attempts at eating. Exam 117/65, 107, 16, 36.7, 94% on room air. He is alert and oriented. No acute distress. Right upper quadrant tenderness is appreciated. Data Hemoglobin 12.3, white blood cell count 5.77, platelet count 299. BUN 5, creatinine 0.85 AST 164, ALT 620, alkaline phosphatase 253. Impression Cholelithiasis on imaging, elevated liver/ductal enzymes, postprandial right upper quadrant pain with eating suggestive of cholecystitis General surgery consult for consideration of laparoscopic cholecystectomy Given his intense pain with eating, suspect it may have to be done during this hospitalization versus discharge and elective scheduling. Subjective Matt Zurita looking uncomfortable in bed this morning, still requiring dilaudid regularly for pain control and IV antinausea medication even without eating. Patient is requesting to eat however. He denies fevers, chills, sweats, or any other new symptoms on review. Review of Systems Review of Systems: All systems reviewed & are unremarkable except as noted in HPI & below Results & Data Results & Data ([facility]) Vital Signs (Past 12 Hours) Vital Signs Temp Pulse Resp BP Pulse Ox 08/08/20 07:13 36.6 C 52 L 18 108/62 93 Resident Activity Tracking Resident Involvement: Resident Care Provided Care Provided: Adult Hospital Medicine (1) Cholelithiasis Biliary obstruction: with biliary obstruction Cholecystitis presence: without cholecystitis Cholelithiasis location: gallbladder and bile duct Qualified Code(s): K80.71 - Calculus of gallbladder and bile duct without cholecystitis with obstruction
--- NOTE | 2020-08-08 14:01 | Nuclear Medicine Report ---
NM hepatobiliary CLINICAL HISTORY: cholelithiasis, elevated LFTs right upper quadrant abdominal pain COMPARISON STUDY: MRCP dated 08/08/2020 FINDINGS: The patient was injected with 5.6 mCi of technetium 99 M Choletec. Sequential anterior imag es were acquired. Hepatic excretion appeared unremarkable. There is normal passage of activity into small bowel. The ga llbladder was first visualized on the 30 minute image. IMPRESSION: 1. Normal study. No evidence of cystic duct obstruction. No evidence of common bile duct obstruction ACT 112: Negative or not required by law. Electronically signed by: Michael Lopez M.D. 08/08/2020 2:00 PM
[2020-08-08] MEDS: ONDANSETRON INJ 2 MG/ML 2 ML VIAL IV PRN ×2 (14:13→22:00)
--- NOTE | 2020-08-08 17:08 | Progress Notes ---
DATE: 08/08/2020 Supplement to the consult note on the patient by Raquel Whitten. I reviewed the chart, x-ray images, lab and interviewed and examined the patient. Patient has had 2-3 days of progressive right upper quadrant pain, nausea, and vomiting with multiple gallstones on ultrasound. MRCP showed no common duct stones. His liver tests are slightly abnormal and have improved somewhat since being hospitalized. Today had a biliary scan that showed as his gallbladder is functioning and not consistent with acute cholecystitis. On exam, he is tender in the right upper quadrant, worse with inspiration consistent with a Joel sign. IMPRESSION: I think the patient has cholecystitis, but not an obstructed gallbladder. He is on IV antibiotics and his liver tests seem to be improving. It is possible he may have passed a common duct stone as well, but I plan on consulting the surgeons to see if they feel that cholecystectomy may be warranted. Dr. Jim Arevalo from [facility] will be covering for me this weekend.
--- NOTE | 2020-08-08 17:18 | Surgery Consultation ---
Date of Consultation August 08, 2020 Assessment & Plan (1) Cholelithiasis: This is a 35yM with no significant PMH who presented to the [facility] ED on 08/07/20 with complaints of abdominal pain associated with nausea/vomiting. Pain has been present over the last 3 days and is made worse with food intake. Workup has revealed + cholelithiasis, with a mildly distended gallbladder, and CBD measuring 7mm. GI was consulted and a HIDA was ordered which was negative for acute cholecystitis. There is no definitive evidence on imaging for choledocholithiasis at this time. LFTs are elevated, but downtrending today. Tbili: 1.3(3.7), AST: 164(311), ALT:620 (780), AlkP: 253(296). WBC 5.7. Patient is currently on IV zosyn. On examination patient's abdomen is soft with tenderness to palpation in the RUQ. We will tentatively plan on taking him tomorrow for laparoscopic cholecystectomy with Dr. Parr. Please keep NPO at midnight. Covid is negative. Dr. Parr-Hermelindo did see the patient in his room. His studies are essentially negative for common bile duct structure and. He does have a relatively large stone in the gallbladder toward the neck which could be acting as an obstructing stone Causing biliary colic. His HIDA scan is essentially normal. He is scheduled for laparoscopic cholecystectomy for tomorrow We will keep him n.p.o. after midnight-he understands and wishes to proceed (2) Abnormal LFTs: History of Present Illness Attending Physician: Rei Diaz, History of Present Illness This is a 35yM with no significant PMH who presented to the [facility] ED on 08/07/20 with complaints of abdominal pain associated with nausea/vomiting. Patient reports the abdominal pain started 3 days ago, noting it to be located in the epigastric and right upper abdomen. He states pain would get worse after eating, especially things like processed meat, bologna, and certain cheeses. He endorses vomiting after meals and then ultimately because of the pain. He decided to come into the ER for further evaluation. A CT a/p revealed + cholelithiasis with a mildly distended gallbladder. RUQ US & MRCP showed similar findings with a 7mm common bile duct. LFT's were elevated at Tbili: 3.7, AST: 311, ALT: 780, AlkP: 296. WBC 7. He denies any fevers/chills, diarrhea/constipation, chest pain or shortness of breath. He denies any previous surgery on his abdomen. He reports feeling mildly better now with the help of pain and anti-nausea medication. Allergies Allergy/AdvReac Type Severity Reaction Status Date / Time Opioids - Morphine Analogues AdvReac Unknown SEE COMMENT Verified 08/07/20 18:34 Home Medications Medication Instructions Recorded Confirmed Type No Known Home Medications 08/07/20 08/07/20 History Patient History Medical History No pertinent past medical history Social History Smoking Status: Current every day smoker Cigarettes Per Day: 10; Hx Alcohol Use: Yes Preferred Language: Khmer Communication Ability: Effective Rn Resource Nurse Required: No Beliefs That Will Affect Care: None marital status: Single Current Living Situation: Alone Feels Safe at Home: Yes Assistive Devices: None Review of Systems Constitutional: no fever and no chills Respiratory: no dyspnea Cardiovascular: no chest pain Gastrointestinal: + abdominal pain (right upper quadrant and epigastric pain), + nausea and + vomiting; no change in bowel habits Physical Exam Physical Exam: awake/alert Constitutional: well developed and well nourished; no acute distress Respiratory: normal respiratory effort Gastrointestinal (Abdomen): Inspection/Auscultation: abdomen not distended Percussion/Palpation: + abdomen tender (ttp in RUQ) and abdomen soft Results & Data ([facility]) Vital Signs (Past 12 Hours) Vital Signs Temp Pulse Resp BP Pulse Ox 08/08/20 15:13 36.7 C 107 H 16 117/65 94 08/08/20 07:13 36.6 C 52 L 18 108/62 93 NM hepatobiliary CLINICAL HISTORY: cholelithiasis, elevated LFTs right upper quadrant abdominal pain COMPARISON STUDY: MRCP dated 08/08/2020 FINDINGS: The patient was injected with 5.6 mCi of technetium 99 M Choletec. Sequential anterior images were acquired. Hepatic excretion appeared unremarkable. There is normal passage of activity into small bowel. The gallbladder was first visualized on the 30 minute image. IMPRESSION: 1. Normal study. No evidence of cystic duct obstruction. No evidence of common bile duct obstruction ACT 112: Negative or not required by law. Electronically signed by: Michael Lopez M.D. 08/08/2020 2:00 PM MR MRCP CLINICAL HISTORY: abnormal liver function tests, mild dilated CBD COMPARISON STUDY: Biliary ultrasound dated 07/30/2020, CT scan the abdomen and pelvis dated 07/30/2020 FINDINGS: A breath-hold MRCP was performed. MIP images were acquired. There are multiple gallstones. There is no gallbladder wall thickening and no pericholecystic fluid. There is mild dilatation of the common bile duct which measures 7 mm. There is no pancreatic ductal dilatation. There is a 2.5 cm T2 bright right renal lesion consistent with a cyst. There is a nonspecific T2 hypointense 12 mm splenic lesion. There is 16mm T2 bright lesion within the left hepatic lobe. There is mild narrowing of the distalmost common bile duct. No definite calculi are visualized. IMPRESSION: 1. Cholelithiasis 2. 7 mm common bile duct 3. Mild nonspecific narrowing of the distalmost common bile duct. No definite common bile duct calculi identified 4. No evidence of pancreatic ductal dilatation 5. 16mm T2 bright hepatic lesion, and 12 mm T2 hypointense splenic lesion which cannot be further characterized on this MRCP. ACT 112: Negative or not required by law. Electronically signed by: Michael Lopez M.D. 08/08/2020 8:23 AM BILIARY ULTRASOUND CLINICAL HISTORY: Epigastric pain. Possible acute cholecystitis COMPARISON STUDY: Chest CT performed the same day FINDINGS: The pancreas appeared normal as visualized. Multiple gallstones were visualized. The gallbladder wall measures 3 mm. The technologist reports a negative sonographic Joel sign. There is mild dilatation the common bile duct which measures 7 mm in maximal diameter. There is no right-sided hydronephrosis. There is a 27 mm right renal cyst. IMPRESSION: 1. Cholelithiasis. The gallbladder wall is at the upper limits of normal in thickness measuring 3 mm. 2. The technologist reports a negative sonographic Joel sign 2. Mild dilatation of the common bile duct which measures 7 mm 4. 27 mm right renal cyst ACT 112: Negative or not required by law. Electronically signed by: Michael Lopez M.D. 08/07/2020 7:[address] SCAN OF THE ABDOMEN AND PELVIS WITHOUT CONTRAST CLINICAL HISTORY: Severe epigastric abdominal pain COMPARISON STUDY: No previous studies for comparison. TECHNIQUE: CT scan of the abdomen and pelvis was performed from the lung bases to the proximal femurs. Images are reviewed in the axial, sagittal, and coronal planes. IV contrast was not administered for this examination. A dose lowering technique was utilized adhering to the principles of ALARA. CT DOSE: 1160.57 mGycm FINDINGS: Lower chest: Very subtle groundglass attenuation within the lower lobes is li ludin atelectatic Liver: The unenhanced liver is normal in size, contour, and attenuation. There is no intrahepatic biliary ductal dilatation. Gallbladder: Cholelithiasis. Spleen: Normal in size and attenuation. Pancreas: Unremarkable. Adrenal glands: Unremarkable. Kidneys: There is a 24 mm hypodense right renal lesion. This slightly exceeds water attenuation but a statistical basis nevertheless represents a cyst, given the patient's age. Bowel: There are no transition zones to indicate bowel obstruction. There is no evidence of acute diverticulitis. There is no evidence of acute appendicitis. Peritoneum: There is no intraperitoneal free air or abdominal ascites. Vasculature: The abdominal aorta is normal in course and caliber. Adenopathy: There are mildly prominent ileocolic lymph nodes likely reactive Pelvic viscera: The bladder, and pelvic viscera are unremarkable. Skeletal structures: No destructive osseous lesions are seen. IMPRESSION: 1. No evidence of bowel obstruction. No evidence of free air 2. Normal appendix. No evidence of acute diverticulitis 3. Cholelithiasis. Mildly distended gallbladder 4. Minimally prominent right ileocolic lymph nodes likely reactive 5. 24 mm right renal lesion likely representing a cyst although it slightly exceeds water attenuation. Ultrasound confirmation could be obtained as deemed clinically appropriate. ACT 112: Negative or not required by law. Electronically signed by: Michael Lopez M.D. 08/07/2020 6:29 PM PG Care Time/CCT Total # of Minutes Spent Total Time Spent with Patient: Total time spent is greater than 50% in coordination of care (as documented) at patient's floor/unit and/or counseling patient: Coding Level of Care Code 48410 Inpt Consult Level 3 Diagnoses Cholelithiasis K80.71 Biliary obstruction: with biliary obstruction Cholecystitis presence: without cholecystitis Cholelithiasis location: gallbladder and bile duct Abnormal LFTs R94.5 (1) Cholelithiasis Biliary obstruction: with biliary obstruction Cholecystitis presence: without cholecystitis Cholelithiasis location: gallbladder and bile duct Qualified Code(s): K80.71 - Calculus of gallbladder and bile duct without cholecystitis with obstruction
--- NOTE | 2020-08-08 17:57 | Medical Student Progress Note ---
Date of Service August 08, 2020 Assessment & Plan Admission and Anticipated Discharge Date Admission Date: Mr. Zurita is a 35-year-old male with no significant PMH who presented on 08/07 for a 2-3 day h/o epigastric and right upper quadrant pain who was admitted for elevated transaminases and imaging consistent with cholelithiasis, though cannot rule out acute cholecystitis. # Epigastric/RUQ pain - Gallbladder u/s showed cholelithiasis, gallbladder wall thickening, mild dilatation of the CBD, and renal cyst - Abdominal/Pelvis CT consistent with above, as well as mildly distended gallbladder, and small right ileocolic lymph node likely reactive - MRCP consistent with above, as well as bright hepatic lesion and hypointense splenic region - GI consulted, ordered HIDA to determine acute cholecystitis which was nml with no evidence of cystic duct or CBD obstruction - Elevated transaminases, nml lipases - 2/2 symptomatic cholelithiasis consistent with imaging vs. acute cholecystitis given imaging showed gall bladder thickening and elevated transaminases despite nml white count and pt has been afebrile vs. choledocholithiasis with possible stone passage given dilated CBD and downtrending transaminases - Consulted surgery for possible cholecystectomy, pending reccs - Diet: NS @ 999 mls/hr, clear liquids for dinner and then NPO at midnight, pending surgery reccs - Dilaudid 0.2 mg IV q3H PRN for pain - Zofran 4 mg IV q6H PRN for nausea - Zosyn 4.5 gm for possible acute cholecystitis #Elevated transaminases - 08/07-08/08 total bilirubin 3.7->1.3, AST 311->164, ALT 780->620, alkaline phosphatase 296->253 - 2/2 to passing stone given mild dilation of CBD # Renal cyst - Per CT: likely representing a cyst although slightly exceeds water attenuation - Ordered U/S for further workup FEN/GI: clear liquid diet and NPO at midnight, pending surgery consult decision, IV Fluids Dispo: Home s/p possible surgery and better pain control SCD: Pt. low risk so none needed Code: Full Supervising Attestation I also saw the patient. Please see my attestation in the resident note of the same date. Subjective Pt. notes that he while his epigastric/RUQ pain was a 10/10 on admission, it is an 8/10 this morning. It is less constant than before and mostly exacerbated by movement. Before hospitalization it was triggered by any food and movement. Feeling tired from the Dilaudid. He is no longer feeling nausea and has had no further episodes of vomiting. He is hungry and wanting food. No fevers or chills. No chest pain or palpitations. No shortness of breath. He says that he has not urinated because of feeling dehydrated nor has he had a BM on admission. He is ambulating. Review of Systems Review of Systems: All systems reviewed & are unremarkable except as noted in HPI & below Physical Exam Physical Exam: GENERAL: Well developed, well nourished, NAD, lying in hospital bed HEENT: Normocephalic, atraumatic; anicteric; oropharynx moist, no erythema, no intraoral masses RESPIRATORY: clear to auscultation b/l with no wheezes, rhonchi or rales, no labored breathing with good air movement CARDIOVASCULAR: RRR, no murmurs, gallops or rubs, no lower extremity edema ABD: Soft, tender in epigastric and RUQ area, nondistended, negative Joel sign, hypoactive bowel sounds, no masses, no hepatosplenomegaly SKIN: warm, dry, no rashes, bruises or lesions, no jaundice NEURO: Alerted and oriented X3 PSYCH: speech nl rate and volume, thought process linear, affect appropriate Results & Data ([facility]) Vital Signs (Past 12 Hours) Vital Signs Temp Pulse Resp BP Pulse Ox 08/08/20 15:13 36.7 C 107 H 16 117/65 94 08/08/20 07:13 36.6 C 52 L 18 108/62 93
--- NOTE | 2020-08-09 05:14 | Surgery Progress Note ---
Date of Service August 09, 2020 Assessment & Plan (1) Biliary colic: This patient is scheduled for cholecystectomy later today. We will keep him n.p.o. until after his surgery He is currently receiving antibiotics in the form of Zosyn which we will continue perioperatively Dr. Parr-4 OR todaylaparoscopic cholecystectomy Admission and Anticipated Discharge Date Admission Date: August 07, 2020 Subjective Patient denies any fevers, shakes, chills. He notes some minor discomfort in his right upper quadrant. He has not had any nausea or vomiting overnight. Physical Exam Constitutional: well developed and well nourished; no acute distress Respiratory: normal respiratory effort; no respiratory distress and no labored breathing Gastrointestinal (Abdomen): Percussion/Palpation: + abdomen tender (Right upper quadrant) and abdomen soft Results & Data ([facility]) Vital Signs (Past 12 Hours) Vital Signs Temp Pulse Resp BP Pulse Ox 08/08/20 23:27 36.6 C 50 L 16 99/55 L 97 PG Care Time/CCT Total # of Minutes Spent Total Time Spent with Patient: Total time spent is greater than 50% in coordination of care (as documented) at patient's floor/unit and/or counseling patient: Coding Level of Care Code 71306 Subseq Hosp Care Lvl 1 Diagnoses Biliary colic K80.50
[2020-08-09] MEDS: HYDROmorphone INJ 0.5 MG/0.5 ML SYR IV PRN (05:36)
[2020-08-09] MEDS: ONDANSETRON INJ 2 MG/ML 2 ML VIAL IV PRN ×3 (05:36→21:09)
[2020-08-09] MEDS: PIPERACILLIN/TAZOBACTAM 3.375 GM in DEXTROSE 5% 100 ML IV SCH ×3 (05:37→21:01)
[2020-08-09] MEDS: NSS + 20MEQ KCL 20 MEQ/1,000 ML BAG IV SCH ×3 (05:38→21:00)
[2020-08-09 05:54] LABS: Basophils # (auto) 0.03 K/uL (0-0.2); Basophils % (auto) 0.5 %; Eosinophils # (auto) 0.45 K/uL (0-0.5); Eosinophils % (auto) 7.1 %; Hemoglobin 12.4 g/dL (14.0-18.0); Immature Granulocytes # (auto) 0.01 K/uL (0.00-0.02); Immature Granulocytes % (auto) 0.2 %; Lymphocytes # (auto) 1.59 K/uL (1.2-3.4); Mean Corpuscular Hemoglobin 30.6 pg (25-34); Mean Corpuscular Hgb Conc 32.6 g/dL (32-36); Mean Corpuscular Volume 93.8 fL (80-100); Mean Platelet Volume 9.9 fL (7.4-10.4); Monocytes # (auto) 0.58 K/uL (0.11-0.59); Monocytes % (auto) 9.1 %; Neutrophils # (auto) 3.69 K/uL (1.4-6.5); Neutrophils % (auto) 58.1 %; Platelet Count 276 K/uL (130-400); RDW Coefficient of Variation 12.9 % (11.5-14.5); RDW Standard Deviation 44.6 fL (36.4-46.3); Red Blood Count 4.05 M/uL (4.7-6.1); White Blood Count 6.35 K/uL (4.8-10.8)
[2020-08-09 06:08] LABS: INR 1.1 (0.9-1.1); Prothrombin Time 11.2 Seconds (9.0-12.0)
[2020-08-09 06:41] LABS: Albumin Globulin Ratio 0.8 (0.9-2); Albumin Level 3.1 gm/dl (3.4-5.0); BUN Creatinine Ratio 6.3 (10-20); Bilirubin Direct 0.5 mg/dl (0-0.2); Bilirubin,Total 0.9 mg/dl (0.2-1); Calcium 8.5 mg/dl (8.5-10.1); Creatinine Clr Calc Pharmacy 164.5 ml/min; Est GFR (African American) 133.3; Globulin 3.7 gm/dl (2.5-4.0); Potassium 4.1 mmol/L (3.5-5.1); Total Protein 6.8 gm/dl (6.4-8.2)
--- NOTE | 2020-08-09 07:16 | Anesthesiology Consultation ---
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 History Surgery Operation Date: 08/09/20 12:00 Proposed Procedures p Laparoscopic Cholecystectomy - Samir Parr MD, FACS Height/Weight Height: 6 ft Weight: 116 kg Allergies Allergy/AdvReac Type Severity Reaction Status Date / Time Opioids - Morphine Analogues AdvReac Unknown SEE COMMENT Verified 08/07/20 18:34 Medications Home Medications Medication Instructions Recorded Confirmed Last Taken No Known Home Medications 08/07/20 08/07/20 Unknown Active Medications Generic Name Dose Route Start Last Admin Trade Name Freq PRN Reason Stop Dose Admin Hydromorphone HCl 0.2 mg 08/08/20 00:27 08/09/20 05:36 Hydromorphone Inj 0.5 Mg/0.5 Ml Syr IV 08/22/20 00:26 0.2 mg Q3H PRN Administration Pain Piperacillin Sod/Tazobactam 115 mls @ 28.75 mls/hr 08/08/20 06:00 08/09/20 05:37 Sod 3.375 gm/ Dextrose IV 08/18/20 05:59 28.8 mls/hr Q8H JUSTYNA Administration Protocol Potassium Chloride/Sodium Chloride 20 meq in 1,000 mls @ 100 mls/hr 08/07/20 23:58 08/09/20 05:38 Normal Saline W/20 Meq Kcl IV 09/06/20 23:57 100 mls/hr .Q10H JUSTYNA Administration Ondansetron HCl 4 mg 08/07/20 23:58 08/09/20 05:36 Ondansetron Inj 2 Mg/Ml 2 Ml Vial IV 09/06/20 23:57 4 mg Q6H PRN Administration Nausea NPO Date Last Intake of Fluids: 08/08/20 Time Last Intake of Fluids: 23:50 Date Last Intake of Solids: 08/08/20 Time Last Intake of Solids: 22:30 Past Medical History Medical History No pertinent past medical history Social History Smoking Status: Current every day smoker tobacco type: cigarettes Smoking cigarettes per day: 10 Hx Alcohol Use: Yes alcohol intake frequency: a few times a month Physical Exam Vital Signs Last Vital Signs Temp 97.9 F 08/08/20 23:27 Pulse 50 L 08/08/20 23:27 Resp 16 08/08/20 23:27 BP 99/55 L 08/08/20 23:27 Pulse Ox 97 08/08/20 23:27 Testing Laboratory Results 08/09/20 05:25 08/09/20 05:25 PT 11.2 Seconds (9.0-12.0) 08/09/20 05:25 INR 1.1 (0.9-1.1) 08/09/20 05:25 Urine Color Brown 08/07/20 17:47 Urine Appearance Clear (Clear) 08/07/20 17:47 Urine pH (4.5-7.5) 08/07/20 17:47 Ur Specific [place] 1.026 (1.000-1.060) 08/07/20 17:47 Urine Protein (Negative) 08/07/20 17:47 Urine Glucose (UA) (Negative) 08/07/20 17:47 Urine Ketones (Negative) 08/07/20 17:47 Urine Nitrite (Negative) 08/07/20 17:47 Ur Leukocyte Esterase (Negative) 08/07/20 17:47 Urine RBC 0-4 /hpf (0-4) 08/07/20 17:47 Urine WBC 5-10 /hpf (0-5) H 08/07/20 17:47 Ur Epithelial Cells 0-5 /lpf (0-5) 08/07/20 17:47 Laboratory Tests 08/07/20 21:18 SARS-CoV-2, RNA, NAAT NEGATIVE
[2020-08-09] MEDS ORDERED: MIDAZOLAM HCL 1 MG/ML 2ML VIAL ONE (07:28)
[2020-08-09] MEDS ORDERED: ROCURONIUM BROMIDE 10 MG/ML 5 ML VIAL IV ONE (07:29)
[2020-08-09] MEDS ORDERED: PROPOFOL IV EMULSION 10 MG/ML 20 ML VIAL IV ONE (07:29)
[2020-08-09] MEDS ORDERED: NEOSTIGMINE METHYLSULFATE 5 MG/5 ML SYR ONE (07:29)
[2020-08-09] MEDS ORDERED: ONDANSETRON INJ 2 MG/ML 2 ML VIAL ONE (07:29)
[2020-08-09] MEDS ORDERED: GLYCOPYRROLATE 0.2 MG/ML VIAL ONE (07:29)
[2020-08-09] MEDS ORDERED: DEXAMETHASONE SOD INJ 4 MG/ML VIAL ONE (07:29)
[2020-08-09] MEDS ORDERED: fentaNYL citrate 100 MCG/2 ML VIAL ONE ×2 (07:29→09:19)
[2020-08-09] MEDS ORDERED: LIDOCAINE HCL 2% 2 ML VIAL/AMP(20MG/ML) INFIL ONE (07:29)
[2020-08-09] MEDS ORDERED: ePHEDrine sulfate 50 MG/ML AMP IV PRN (07:39)
[2020-08-09] MEDS ORDERED: ATROPINE SULFATE 0.1 MG/ML 10ML SYR IV PRN (07:39)
[2020-08-09] MEDS ORDERED: ONDANSETRON INJ 2 MG/ML 2 ML VIAL IV PRN ×2 (07:39→10:58)
[2020-08-09] MEDS ORDERED: BUPIVACAINE 0.5 % 5 MG/1 ML MPF 30ML VIAL ONE (08:28)
--- NOTE | 2020-08-09 08:52 | Hospitalist Progress Note ---
Date of Service August 09, 2020 Assessment & Plan (1) Abdominal pain: Mr. Zurita is a 35-year-old male with no significant PMH who presented on 08/07 for a 2-3 day h/o epigastric and right upper quadrant pain who was admitted for elevated transaminases and imaging consistent with cholelithiasis. Epigastric/RUQ pain Cholelithiasis - Gallbladder u/s showed cholelithiasis, gallbladder wall thickening, mild dilatation of the CBD, and renal cyst - Abdominal/Pelvis CT consistent with above, as well as mildly distended gallbladder, and small right ileocolic lymph node likely reactive - MRCP consistent with above, as well as slightly dilated CBD with small narrowing of distal bile duct - GI consulted, ordered HIDA which was negative - lipase normal on admit elevated this AM 991, LFT's elevated at AST 164 ALT 620 on admission and both are trendning down as well. - General surgery consulted, had cholecystectomy this morning - diet advance as tolerated Continue Zosyn for cholecystitis though imaging and labwork not convincing for acute cholecystitis - Dilaudid 0.2 mg IV q3H PRN for pain - Zofran 4 mg IV q6H PRN for nausea - Chronic cholecystitis post surgical dx. Continue with post op care. Elevated transaminases - Improving from admission. - As there is no evidence of current obstruction, could very well be secondary to passing a stone prior to our investigations given drop in cholestatic elevations and mild dilation of CBD Renal cyst - Per CT: likely representing a cyst although slightly exceeds water attenuation - U/S confirming right renal cyst 27 mm normal kidney function FEN/GI: clear liquid diet and advance as tolerated Dispo: med/surg, post op care DVT PPx: Ambulation Full Code (2) Renal cyst, right: (3) Common bile duct dilatation: (4) Gallbladder anomaly: (5) Biliary obstruction: (6) Cholelithiasis: (7) Abnormal LFTs: Admission and Anticipated Discharge Date Admission Date: August 07, 2020 Supervising Physician Co-Signing Physician Notes I saw the patient along with the resident physician and confirmed wiggins portions of the history and physical examination. I agree with the impression and plan as noted. The patient is seen shortly after returning to the floor after his laparoscopic cholecystectomy. He does complain of right upper quadrant pain. Exam 134/79, 59, 16, 36.7 C, 97% on room air He is alert and oriented. He is experiencing some postoperative pain. Right upper quadrant tenderness is appreciated. Data Hemoglobin 12. 4, white blood cell count 6.35, platelet count 2 76. BUN 5, creatinine 0.84 AST 81, ALT 468, alkaline phosphatase 269 (all trending down). Lipase 991 (was normal yesterday) Impression Cholelithiasis on imaging, elevated liver/ductal enzymes, postprandial right upper quadrant pain with eating suggestive of cholecystitis Status post laparoscopic cholecystectomy this morning He had fentanyl immediately postoperatively, Dilaudid provided now Diet per surgery Repeat CBC, CMP, lipase in AM Subjective Matt was seen s/p Lap darlin. He tolerated the procedure without complications. He notes having abdominal pain to RUQ that he notes is from incision. He denies any shoulder pain. No current nausea or vomiting. No acute events were reported overnight. Physical Exam Constitutional: cooperative appears uncomfortable Eyes: PERRL, conjunctivae normal, anicteric sclerae ENMT: external ear and nose normal, oropharynx normal Neck: trachea midline Respiratory: normal respiratory effort, lungs clear to auscultation Cardiovascular: RRR, no murmur, no edema Gastrointestinal (Abdomen): deferred s/p surgical procedure Musculoskeletal: Head/Neck/Chest: normocephalic and head atraumatic Skin: no rashes, warm and dry Neurologic: moves all extremities and awake Psychiatric: Orientation: alert and oriented x 3 Results & Data Results & Data ([facility]) Vital Signs (Past 12 Hours) Vital Signs Temp Pulse Resp BP Pulse Ox 08/09/20 07:49 36.4 C L 64 16 115/62 95 08/08/20 23:27 36.6 C 50 L 16 99/55 L 97 Laboratory Results Laboratory Results - last 24 hr 08/09/20 08/09/20 08/09/20 05:25 05:25 05:25 WBC 6.35 RBC 4.05 L Hgb 12.4 L Hct 38.0 L MCV 93.8 MCH 30.6 MCHC 32.6 RDW Std Deviation 44.6 RDW Coeff of Jimmy 12.9 Plt Count 276 MPV 9.9 Immature Gran % (Auto) 0.2 Neut % (Auto) 58.1 Lymph % (Auto) 25.0 Deuel % (Auto) 9.1 Eos % (Auto) 7.1 Baso % (Auto) 0.5 Neut # (Auto) 3.69 Lymph # (Auto) 1.59 Deuel # (Auto) 0.58 Eos # (Auto) 0.45 Baso # (Auto) 0.03 Immature Gran # (Auto) 0.01 PT 11.2 INR 1.1 Sodium 143 Potassium 4.1 D Chloride 111 H Carbon Dioxide 30 Anion Gap 2.0 L BUN 5 L Creatinine 0.84 Est Cr Clr Drug Dosing 164.5 Est GFR ( Amer) 133.3 Est GFR (Non-Af Amer) 115.0 BUN/Creatinine Ratio 6.3 L Glucose 76 Calcium 8.5 Magnesium 2.0 Iron 86 Transferrin 231 Total Bilirubin 0.9 Direct Bilirubin 0.5 H AST 81 H ALT 468 H Alkaline Phosphatase 269 H Total Protein 6.8 Albumin 3.1 L Globulin 3.7 Albumin/Globulin Ratio 0.8 L Ceruloplasmin Cholesterol 105 Lipase 991 H Hepatitis A IgM Ab Hepatitis A Ab Total Hep Bs Antibody Hep Bs Antibody, Quant Hep B Core IgM Ab Hepatitis Be Antibody Hepatitis Be Antigen Hepatitis C Antibody 08/09/20 08/09/20 05:25 05:25 WBC RBC Hgb Hct MCV MCH MCHC RDW Std Deviation RDW Coeff of Jimmy Plt Count MPV Immature Gran % (Auto) Neut % (Auto) Lymph % (Auto) Deuel % (Auto) Eos % (Auto) Baso % (Auto) Neut # (Auto) Lymph # (Auto) Deuel # (Auto) Eos # (Auto) Baso # (Auto) Immature Gran # (Auto) PT INR Sodium Potassium Chloride Carbon Dioxide Anion Gap BUN Creatinine Est Cr Clr Drug Dosing Est GFR ( Amer) Est GFR (Non-Af Amer) BUN/Creatinine Ratio Glucose Calcium Magnesium Iron Transferrin Total Bilirubin Direct Bilirubin AST ALT Alkaline Phosphatase Total Protein Albumin Globulin Albumin/Globulin Ratio Ceruloplasmin Pending Cholesterol Lipase Hepatitis A IgM Ab Pending Hepatitis A Ab Total Pending Hep Bs Antibody Non-Immune Hep Bs Antibody, Quant < 3.10 L Hep B Core IgM Ab Pending Hepatitis Be Antibody Pending Hepatitis Be Antigen Pending Hepatitis C Antibody Neg Medications Administered Hydromorphone HCl (Hydromorphone Inj 0.5 Mg/0.5 Ml Syr) 0.2 mg IV Q3H PRN PRN Reason: Moderate Pain Stop: 08/22/20 00:26 Last Admin: 08/09/20 05:36 Dose: 0.2 mg Documented by: [id number] Admin: 08/08/20 21:09 Dose: 0.2 mg Documented by: [id number] Admin: 08/08/20 18:09 Dose: 0.2 mg Documented by: [id number] Admin: 08/08/20 14:12 Dose: 0.2 mg Documented by: [id number] Admin: 08/08/20 09:05 Dose: 0.2 mg Documented by: [id number] Admin: 08/08/20 05:40 Dose: 0.2 mg Documented by: [id number] Admin: 08/08/20 00:35 Dose: 0.2 mg Documented by: [id number] Hydromorphone HCl (Hydromorphone Inj 1 Mg/Ml Syringe) 1 mg IV Q3HWA PRN PRN Reason: Severe Pain Stop: 08/23/20 10:57 Last Admin: 08/09/20 11:09 Dose: 1 mg Documented by: [id number] Piperacillin Sod/Tazobactam (Sod 3.375 gm/ Dextrose) 115 mls @ 28.75 mls/hr IV Q8H [facility]; Protocol Stop: 08/18/20 05:59 Last Infusion: 08/09/20 11:11 Dose: 0 mls/hr Documented by: [id number] Admin: 08/09/20 05:37 Dose: 28.8 mls/hr Documented by: [id number] Infusion: 08/09/20 00:35 Dose: 0 mls/hr Documented by: [id number] Admin: 08/08/20 20:33 Dose: 28.8 mls/hr Documented by: [id number] Infusion: 08/08/20 18:23 Dose: 0 mls/hr Documented by: [id number] Admin: 08/08/20 14:40 Dose: 28.8 mls/hr Documented by: [id number] Infusion: 08/08/20 10:50 Dose: 0 mls/hr Documented by: [id number] Infusion: 08/08/20 08:19 Dose: 28.8 mls/hr Documented by: [id number] Infusion: 08/08/20 07:35 Dose: 0 mls/hr Documented by: [id number] Admin: 08/08/20 05:37 Dose: 28.8 mls/hr Documented by: [id number] Potassium Chloride/Sodium Chloride (Normal Saline W/20 Meq Kcl) 20 meq in 1,000 mls @ 100 mls/hr IV .Q10H JUSTYNA Stop: 09/06/20 23:57 Last Admin: 08/09/20 11:34 Dose: 100 mls/hr Documented by: [id number] Infusion: 08/09/20 11:34 Dose: 0 mls/hr Documented by: [id number] Admin: 08/09/20 05:38 Dose: 100 mls/hr Documented by: [id number] Infusion: 08/09/20 05:38 Dose: 0 mls/hr Documented by: [id number] Admin: 08/08/20 20:35 Dose: 100 mls/hr Documented by: [id number] Infusion: 08/08/20 20:34 Dose: 0 mls/hr Documented by: [id number] Infusion: 08/08/20 14:28 Dose: 100 mls/hr Documented by: [id number] Infusion: 08/08/20 13:00 Dose: 0 mls/hr Documented by: [id number] Admin: 08/08/20 11:12 Dose: 100 mls/hr Documented by: [id number] Infusion: 08/08/20 11:12 Dose: 0 mls/hr Documented by: [id number] Infusion: 08/08/20 08:19 Dose: 100 mls/hr Documented by: [id number] Infusion: 08/08/20 07:35 Dose: 0 mls/hr Documented by: [id number] Admin: 08/08/20 00:48 Dose: 100 mls/hr Documented by: [id number] Ondansetron HCl (Ondansetron Inj 2 Mg/Ml 2 Ml Vial) 4 mg IV Q6H PRN PRN Reason: Nausea Stop: 09/06/20 23:57 Last Admin: 08/09/20 05:36 Dose: 4 mg Documented by: [id number] Admin: 08/08/20 22:00 Dose: 4 mg Documented by: [id number] Admin: 08/08/20 14:13 Dose: 4 mg Documented by: [id number] Resident Activity Tracking Resident Involvement: Resident Care Provided Care Provided: Adult Hospital Medicine (1) Cholelithiasis Biliary obstruction: with biliary obstruction Cholecystitis presence: without cholecystitis Cholelithiasis location: gallbladder and bile duct Qualified Code(s): K80.71 - Calculus of gallbladder and bile duct without cholecystitis with obstruction
[2020-08-09 09:00] LABS: Hepatitis B Surface Ab Quant < 3.10 mIU/mL (>or=10mIU/mL Immune); Hepatitis B Surface Antibody Non-Immune
[2020-08-09] MEDS ORDERED: LABETALOL HCL IV 5 MG/ML 20ML IV ONE (09:07)
[2020-08-09] MEDS ORDERED: FLOSEAL HEMOSTATIC MATRIX 10ML TOP ONE (09:10)
[2020-08-09 09:40] LABS: Hepatitis C IgG 13Yrs+Old_Rflx Neg (Neg)
--- NOTE | 2020-08-09 09:40 | Post Operative Brief Note ---
PG Immediate Post Op with CF Date of Surgery August 09, 2020 Pre & Post Diagnosis Operation Date: 08/09/20 12:00 Pre-Op Diagnosis: Cholecystitis Post-Op Diagnosis: Cholecystitis- chronic I identified the patient and participated in the time-out.: Yes Procedure Operation Date: 08/09/20 12:00 Actual Procedures p Laparoscopic Cholecystectomy - Samir Parr MD, FACS Surgeon Samir Parr MD, FACS [employer] nurses Estimated Blood Loss 20 Findings Consistent with Post-Op Diagnosis Specimens Specimen Description: A. Gallbladder
[2020-08-09] MEDS ORDERED: ACETAMINOPHEN 1,000 MG/100 ML VIAL IV ONE (09:41)
[2020-08-09] MEDS: fentaNYL citrate 100 MCG/2 ML VIAL IV PRN ×2 (10:08→10:15)
--- NOTE | 2020-08-09 10:24 | Anesthesiology Progress Note ---
Date of Service August 09, 2020 Anesthesia Post Procedure Vital Signs Vital Signs: Temp Pulse Pulse Pulse Resp BP BP 08/09/20 10:15 52 L 12 148/83 H 08/09/20 10:05 61 19 155/80 H 08/09/20 09:55 97.7 F 75 17 147/79 H 08/09/20 07:49 97.5 F L 64 16 115/62 08/08/20 23:27 97.9 F 50 L 16 99/55 L 08/08/20 15:13 98.1 F 107 H 16 117/65 Pulse Ox 08/09/20 10:15 99 08/09/20 10:05 100 08/09/20 09:55 100 08/09/20 07:49 95 08/08/20 23:27 97 08/08/20 15:13 94 Pain Intensity Abdomen: Pain Intensity: 6 Transfer of Care Handoff Completed per policy Notes Mental Status: alert / awake / arousable and participated in evaluation Patient Amnestic to Procedure: Yes Nausea / Vomiting: adequately controlled Pain: adequately controlled Airway Patency, RR, SpO2: stable & adequate BP & HR: stable & adequate Hydration State: stable & adequate Anesthetic Complications: no major complications apparent and Pt Satisfied with anesthetic care
[2020-08-09] MEDS ORDERED: HYDROCODONE/ACETAMOPHEN 5/325MG TAB PO PRN (10:58)
[2020-08-09] MEDS ORDERED: PROMETHAZINE HCL 25 MG in SODIUM CHLORIDE 0.9% 50 ML IV PRN (10:58)
[2020-08-09] MEDS ORDERED: PROMETHAZINE HCL 12.5 MG in SODIUM CHLORIDE 0.9% 50 ML IV PRN (10:58)
[2020-08-09] MEDS ORDERED: ACETAMINOPHEN 325 MG TAB PO PRN (10:58)
[2020-08-09] MEDS: HYDROmorphone INJ 1 MG/ML SYRINGE IV PRN ×2 (11:09→14:52)
--- NOTE | 2020-08-09 17:24 | Operative Report (OR) ---
DATE OF OPERATION: 08/09/2020 NAME OF OPERATION: Laparoscopic cholecystectomy. PREOPERATIVE DIAGNOSIS: Biliary colic. POSTOPERATIVE DIAGNOSES: Biliary colic with chronic cholecystitis. STAFF SURGEON: Samir Parr MD. BOTTLE PACKING MACHINE CLEANER: Nurses. ANESTHESIA: General. DESCRIPTION OF PROCEDURE: The patient was brought in the operating room and placed on the operating table in supine position. His abdomen was prepped and draped in usual fashion. A 0.5% plain Marcaine was used to anesthetize all incisions. Incision was made above the umbilicus. His dermis was very thick and dense. Dissection was carried down to the fascia. Again, the fascia seemed to be relatively thick and dense. A Veress needle was passed, pneumoperitoneum produced. An 11 mm port placed at this level. Under visualization, three 5 mm ports were placed. The patient did have some oozing from the skin edges, which was more than normal, possibly from medication taken in the past. At this point, the gallbladder was grasped and retracted. Dissection was carried out to augustine hepatis, identifying the cystic duct and cystic artery. These were clipped and transected. Then the gallbladder dissected away from the liver bed in the usual fashion, because of his increased bleeding time, I placed some FloSeal in the gallbladder bed. Gallbladder was placed in an Endobag. Endobag was removed through the umbilical site. I had to enlarge the fascial defect because of the size of the gallbladder and a large stone in the gallbladder. The fascial defect at the umbilicus closed using 0 PDS suture. Skin reapproximated using subcuticular 4-0 Monocryl, Dermabond at the umbilicus, Steri-Strips at the other sites. Dressings applied and patient transferred to recovery room in stable condition. I attest to the content of the Intraoperative Record and any orders documented therein. Any exception s are noted below.
[2020-08-09] MEDS: HYDROCODONE/ACETAMOPHEN 5/325MG TAB PO PRN (18:20)
[2020-08-09] MEDS: SENNOSIDES 8.8 MG/5 ML UDC PO SCH (18:21)
[2020-08-10] MEDS: HYDROCODONE/ACETAMOPHEN 5/325MG TAB PO PRN (00:53)
--- NOTE | 2020-08-10 05:55 | Surgery Progress Note ---
Date of Service August 10, 2020 Assessment & Plan (1) Biliary colic: Postoperative day #1 laparoscopic cholecystectomy. Continue diet as tolerated Increase activity as tolerated Continue analgesics Patient will likely be able to just be discharged home later today Admission and Anticipated Discharge Date Admission Date: August 07, 2020 Subjective Admits abdominal pain near her surgical incisions. He does not have any nausea or vomiting. He denies any fever shakes or chills. He tolerated regular food for dinner last night. Physical Exam Constitutional: well developed and well nourished; no acute distress Gastrointestinal (Abdomen): Bowel sounds are present. Incisions are covered with dressings that are clean dry and intact. Patient does have expected pain from his surgical incisions. Results & Data ([facility]) Vital Signs (Past 12 Hours) Vital Signs Temp Pulse Pulse Resp BP Pulse Ox 08/10/20 03:37 36.7 C 58 L 14 103/62 94 08/09/20 22:57 37.0 C 56 L 16 110/61 94 08/09/20 19:26 37.1 C 75 16 146/69 H 96 PG Care Time/CCT Total # of Minutes Spent Total Time Spent with Patient: Total time spent is greater than 50% in coordination of care (as documented) at patient's floor/unit and/or counseling patient: Coding Level of Care Code None Diagnoses Biliary colic K80.50
[2020-08-10] MEDS: PIPERACILLIN/TAZOBACTAM 3.375 GM in DEXTROSE 5% 100 ML IV SCH (06:03)
[2020-08-10 06:25] LABS: Basophils # (auto) 0.04 K/uL (0-0.2); Basophils % (auto) 0.5 %; Eosinophils # (auto) 0.44 K/uL (0-0.5); Eosinophils % (auto) 5.1 %; Hematocrit (blood only) 37.4 % (42-52); Hemoglobin 12.1 g/dL (14.0-18.0); Immature Granulocytes # (auto) 0.02 K/uL (0.00-0.02); Immature Granulocytes % (auto) 0.2 %; Lymphocytes # (auto) 2.22 K/uL (1.2-3.4); Lymphocytes % (auto) 25.7 %; Mean Corpuscular Hemoglobin 30.8 pg (25-34); Mean Corpuscular Hgb Conc 32.4 g/dL (32-36); Mean Corpuscular Volume 95.2 fL (80-100); Mean Platelet Volume 10.1 fL (7.4-10.4); Monocytes # (auto) 0.86 K/uL (0.11-0.59); Monocytes % (auto) 9.9 %; Neutrophils # (auto) 5.07 K/uL (1.4-6.5); Neutrophils % (auto) 58.6 %; Platelet Count 321 K/uL (130-400); RDW Standard Deviation 45.5 fL (36.4-46.3); Red Blood Count 3.93 M/uL (4.7-6.1); White Blood Count 8.65 K/uL (4.8-10.8)
[2020-08-10 06:56] LABS: BUN Creatinine Ratio 6.3 (10-20); Calcium 8.8 mg/dl (8.5-10.1); Creatinine Clr Calc Pharmacy 170.6 ml/min; Est GFR (African American) 135.3; Est GFR (Non-African American) 116.8; Magnesium 2.1 mg/dl (1.8-2.4); Potassium 4.3 mmol/L (3.5-5.1)
[2020-08-10 06:59] LABS: Albumin Globulin Ratio 0.8 (0.9-2); Bilirubin,Total 0.6 mg/dl (0.2-1); Globulin 3.8 gm/dl (2.5-4.0); Total Protein 6.8 gm/dl (6.4-8.2)
--- NOTE | 2020-08-10 07:04 | Discharge Summary ---
Date of Service August 10, 2020 Admission HPI Per Admitting Provider The patient is a 35-year-old male with no significant PMH who presents with symptoms as noted above. Abnormal laboratories in the emergency department tonight: Hemoglobin 13.9, total bilirubin 3.7, AST 311, ALT 780, alkaline phosphatase 296. Biliary ultrasound showed cholelithiasis with gallbladder wall at the upper limits of normal thickness. There was a negative sonographic Joel sign. Mild dilatation of the common bile duct which measures 7 mm. [address] cyst CT of abdomen and pelvis showed no evidence of bowel obstruction and no evidence of free air. There is normal appendix and no evidence of acute diverticulitis. Cholelithiasis with mildly distended gallbladder. Minimally prominent right ileocolic lymph nodes likely reactive. 24 mm right renal lesion likely representing a cyst although a slightly exceeds water attenuation Admission Exam Per Admitting Provider The patient is awake, alert and oriented 3, well developed and well nourished, normocephalic and atraumatic, lying in bed and in no acute distress. HEENT--PERRL, EOMI, mucous membranes and oropharynx dry. Neck--supple. No JVD. No bruits. Thyroid normal, trachea midline, no adenopathy. Heart--normal S1 and S2. No murmurs, rubs or gallops. Lungs--clear bilaterally, no respiratory distress, no accessory muscle use. Abdomen--normal bowel sounds and soft. Mild epigastric tenderness. Nondistended, no hernias or masses, no organomegaly. Extremities--no cyanosis or clubbing. No edema. Dermatologic--normal skin turgor, normal color, no abnormal lymph nodes, no rash. Neurologic--cranial nerves II through XII grossly intact. Rheumatologic--normal range of motion. Psychiatric--normal affect. Principal Diagnosis Chronic cholecystitis Discharge Exam Constitutional cooperative Eyes PERRL, conjunctivae normal, anicteric sclerae ENMT external ear and nose normal, oropharynx normal Neck trachea midline Respiratory normal respiratory effort, lungs clear to auscultation Cardiovascular RRR, no murmur, no edema Gastrointestinal (Abdomen) Inspection/Auscultation: normal bowel sounds surgical bandages intact, clean, dry Musculoskeletal Head/Neck/Chest: normocephalic and head atraumatic Skin no rashes, warm and dry Neurologic moves all extremities and awake Psychiatric Orientation: alert and oriented x 3 Discharge Data Allergies Allergy/AdvReac Type Severity Reaction Status Date / Time Opioids - Morphine Analogues AdvReac Unknown SEE COMMENT Verified 08/07/20 18:34 Consultations 08/07/20 21:01 ED Decision to Admit Stat 08/08/20 08:39 Consult Gastroenterology Routine 08/08/20 15:56 Consult General Surgery Routine Procedures Performed Operation Date: 08/09/20 12:00 Actual Procedures p Laparoscopic Cholecystectomy - Samir Parr MD, FACS Ordered Studies 08/07/20 17:24 CT abd pelvis wo con Stat 08/07/20 18:38 US gallbladder Stat 08/08/20 01:35 MR MRCP Stat Hospital Course (1) Abdominal pain: Mr. Zurita is a 35-year-old male with no significant PMH who presented on 08/07 for a 2-3 day h/o epigastric and right upper quadrant pain who was admitted for elevated transaminases and imaging consistent with cholelithiasis. He had a lap darlin performed on 08/09/20 without complications. He tolerated food and was discharged home on 08/10/20. Epigastric/RUQ pain Cholelithiasis - Gallbladder u/s showed cholelithiasis, gallbladder wall thickening, mild dilatation of the CBD, and renal cyst - Abdominal/Pelvis CT consistent with above, as well as mildly distended gallbladder, and small right ileocolic lymph node likely reactive - MRCP consistent with above, as well as slightly dilated CBD with small narrowing of distal bile duct - GI consulted, ordered HIDA which was negative - LFT's elevated at AST 311 ALT 780 on admission (08/07/20) and both trended down. AST was 43 on day of discharge; ALT was 350. - General surgery consulted, had cholecystectomy 08/09/20 - diet was tolerated - Received Zosyn for cholecystitis on admission and discontinued on discharge. - Dilaudid 0.2 mg IV q3H PRN for pain while here in hospital. - Zofran 4 mg IV q6H PRN for nausea - Chronic cholecystitis post surgical dx. Continue with post op care in outpatient setting. - Lipase was elevated 08/09/20 AM labs but wasn't greater than 3 times upper limit of normal and returned to WNL on day of discharge. Most likely from irritation from pancreas from local inflammation from acute illness. Elevated transaminases - Improve/trended down from admission, as noted above. - There was no evidence of obstruction, could very well be secondary to passing a stone prior to our investigations given drop in cholestatic elevations and mild dilation of CBD Renal cyst - Per CT: likely representing a cyst although slightly exceeds water attenuation - U/S confirming right renal cyst 27 mm normal kidney function FEN/GI: clear liquid diet and advanced and was tolerated Dispo: med/surg, post op care DVT PPx: Ambulation Full Code (2) Renal cyst, right: (3) Common bile duct dilatation: (4) Gallbladder anomaly: (5) Biliary obstruction: (6) Cholelithiasis: (7) Abnormal LFTs: Total Time Total Time Spent Total Time Spent (In Minutes): 20 Total Time Includes: Examination of the Patient and Communication With Other Pr oviders Discharge Plan Discharge Items Patient Disposition: Home - Self-Care Reason For Visit: GI BLEED Discharge Diagnosis: cholecystitis Activity: As commented below Activity Comment: light activity for 3 weeks Lifting: No more than 25 pounds Bathing Comment: may shower Sexual Activity: When tolerated Exercise Comment: wait 3 weeks Driving/Machine Use: Resume 3 days after discharge Non-emergency contact: Primary Care Provider and Surgeon Call non-emergency contact if: your pain is not controlled, your temperature is above 101 and your wound has increased drainage Follow-up/Referrals: Samir Parr MD, FACS [Physician] - PCP,NO [Primary Care Provider] - Diet: Regular Addtl Attending Provider Instructions: SPECIAL CARE INSTRUCTIONS: * Cover incisions and change daily for comfort/drainage. * Leave steri strips in place Avoid constipation- * May Use Senokot S and Milk of Magnesium twice daily as directed on the package * May use ibuprofen for pain as tolerated. * Expect some swelling and bruising. Call your doctor if: * Temperature above 101 degrees * Pain not relieved by pain medicine ordered * There is increased drainage or redness from any incision * You have any unanswered questions or concerns [phone]. FOLLOW UP VISIT: If not already scheduled, please call the office for a follow-up visit. for 2 weeks- no sutures to remove OFFICE PHONE NUMBER: Dr. Parr Office Pending Studies at Discharge: No Stand-Alone Forms: [email or web address], Smoking Cessation Medications and DC Order Prescriptions: New hydrocodone-acetaminophen [Bryan] 5-325 mg tablet 1 - 2 tab PO Q6H PRN (Reason: pain) Qty: 30 RF: 0 Discharge Orders: Discharge Order (Routine); Ordered 08/10/20 Ordered By: Aniceto Jama Admission Data Admit Date/Time: 08/07/20 22:31 Attending Provider: Rei Diaz Admit Provider: Gerri Gutierrez Primary Care Provider: PCP,NO Other Providers: Devaughn Mirza ; Wilbert Barkley ; Samir Parr ; Colby Cheatham ; Ryan Tello ; Aniceto Lawrence Jr ; Mickey Briggs ; Gio Garcia ; Jillian Culp ; Harley Tolliver ; Miguel Angel Massey Other Interventions: Discharge Summary Assessment (RN) Last Done: 08/10/20 09:42 Supervising Physician Co-Signing Physician Notes I saw the patient with the resident physician and confirmed wiggins portions of the history and exam. I agree with the impression and plan as noted in the resident discharge note. He is feeling well this morning. Minimal pain. Tolerating p.o. without difficulty. Exam 136/76, 75, 14, 36.5, 93% on room air. He is alert and oriented. Positive bowel sounds. Incisional pain consistent with surgery. Data White blood cell count 8.65, hemoglobin 12.1, platelet count 321 BUN 5, creatinine 0.81. AST 43, ALT 350, alkaline phosphatase 223. Lipase 87. Impression Cholelithiasis on imaging, elevated liver/ductal enzymes, postprandial right upper quadrant pain with eating suggestive of cholecystitis Status post laparoscopic cholecystectomy 08/09/2020 He is tolerating p.o. without difficulty; his incisional discomfort is consistent with his surgery yesterday. He is cleared for discharge per surgery. Discussed gradual increase of diet. Discussed symptoms to cause PCP/surgeon and to return to the hospital. Resident Activity Tracking Resident Involvement: Resident Care Provided Care Provided: Adult Hospital Medicine
[2020-08-10] MEDS: SENNOSIDES 8.8 MG/5 ML UDC PO SCH (07:25)
--- NOTE | 2020-08-10 08:09 | Discharge Summary (DS) ---
PRINCIPAL DIAGNOSES: Chronic cholecystitis and biliary colic. PROCEDURES: The patient underwent laparoscopic cholecystectomy. HISTORY OF PRESENT ILLNESS: The patient is a 35-year-old male presenting to the Emergency Room on 08/07/2020 with abdominal pain and elevated liver function studies. The patient was seen by Gastroenterology and studies were performed including MRCP and HIDA scan, which did not show any evidence of common bile duct obstruction. On 08/09/2020, the patient was taken to the operating room where he underwent laparoscopic cholecystectomy showing evidence of chronic cholecystitis. The patient did well and has progressed well and has felt stable for discharge home today to be followed in the surgical clinic within 1-2 weeks.
[2020-08-13 20:58] LABS: Ceruloplasmin 31 mg/dL (18-36); Hepatitis A Antibody IgM NON-REACTIVE (NON-REACTIVE); Hepatitis A Antibody Total NON-REACTIVE (NON-REACTIVE); Hepatitis B Core Antibody IgM NON-REACTIVE (NON-REACTIVE); Hepatitis BE Antibody Nonreactive; Hepatitis BE Antigen Nonreactive
== END 2020-08-10 11:32 | disposition home or self-care (01) | DRG 418 ==
LOC: ED 16:48 → SUATTDRO 22:31 → 3N 22:31